=== PATIENT | female | born 1950 | race Caucasian/White ===

== ENCOUNTER 2018-04-28 12:18 | Inpatient (IN) | payer MEDICARE, BC, SELFPAY ==
[2018-04-28] VITALS (60 sets, daily range): BP systolic 64–130; BP diastolic 30–82; PULSE 91–118; RESP 13–36; TEMP 36.9–37.7; O2SAT 92–100
[2018-04-28] MEDS: Normal Saline 1,000 ML 1000 ML IV ×2 (13:23→16:22)
[2018-04-28 13:24] LABS: Abs Immature Grans 0.04 k/cumm (0.0-0.09); Absolute Basophil Count 0.01 k/cumm (0.0-0.2); Absolute Lymphocyte Count 0.55 k/cumm (1.2-3.4); Basophils % 0.1; HGB 13.3 g/dL (12.0-15.5); Immature Grans % 0.3; Lymphocytes % 4.8; Mean Corp. HGB Concentration 34.1 g/dL (32.0-36.0); Mean Corpuscular Hemoglobin 30.4 pg (27.0-33.0); Mean Platelet Volume 10.6 fL (8.0-11.0); Monocytes % 5.6; Neutrophils % 89.2; Platelet Count 167 x1000/uL (130-400); RBC 4.38 m/cumm (4.00-5.20); RBC Distribution Width 12.6 % (11.7-14.6); White Blood Cell Count 11.53 k/cumm (4.4-10.8)
[2018-04-28 13:30] LABS: Absolute Monocyte Count 0.65 k/cumm (0.11-0.7); Absolute Neutrophil Count 10.28 k/cumm (1.2-6.7)
[2018-04-28 13:35] LABS: ALT 16 U/L (12-78); AST 15 U/L (15-37); Albumin 3.2 g/dL (3.4-5.0); Alkaline Phosphatase 74 U/L (46-116); Anion Gap 12.5 mmol/L (3-11); BUN 9 mg/dL (7-18); Bilirubin, Total 0.8 mg/dL (0.2-1.0); CO2 25.5 mmol/L (21.0-32.0); Calcium 8.5 mg/dL (8.5-10.1); Chloride 99 mmol/L (98-107); Glucose 110 mg/dL (70-100); Magnesium 2.1 mg/dL (1.8-2.4); Sodium 137 mmol/L (136-145); Total Protein 7.3 g/dL (6.4-8.2)
[2018-04-28 13:36] LABS: Troponin I < 0.02 ng/mL (0.00-0.06)
--- NOTE | 2018-04-28 15:00 | W.ED.GENAD ---
Discharge Plan Discharge Details Chief Complaint: GenMedical Reason For Visit: CELLULITIS Admit Date/Time: 04/28/18 20:26 Admit Provider: Nato Gudino Attending Provider: Nato Gudino Primary Care Provider: Brandy White ED Provider: Nghia rCenshaw Discharge Data Discharge Date/Time-TO BE ENTERED AT DEPARTURE: 04/28/18 21:21 Medical Decision Making MDM Narrative Medical decision making narrative: Patient presenting to the emergency department for chief complaint of malaise, sore throat, cough, and subjective fever and chills over the past couple days. She states within the past 24 hours she has developed a significant redness to her chest surrounding her open cancerous lesion. Patient does state an episode of syncope after using the restroom. She does state some mild shortness of breath and nausea but denies any diarrhea, or vomiting. Patient does state due to some nausea she has had decreased intake of food or fluids and feels dehydrated. Patient denies any injury or trauma from the syncopal episode. Physical exam is unremarkable for HEENT exam, head trauma, neurological deficits. Patient does have significant lesion to the anterior sternum with some opening of the lesion which patient states is at baseline. Across the anterior wall there is streaking erythema with warmth and patient does state discomfort when palpating this area but at rest denies any pain or discomfort. Patient is hypotensive and tachycardic but afebrile. Concern for possible anterior chest wall cellulitis, viral illness, pneumonia, or PE. Plan to perform lab testing including blood cultures, urinalysis, chest x-ray, and CT scan of chest after evaluation of renal function. Blood cultures were also drawn pending results patient given 1 L IV fluids. Patient was also hypoxic so 2 L nasal cannula was given the patient an option responded appropriate. Review of labs that show a mild leukocytosis and some signs of dehydration on CMP otherwise nondiagnostic reassess. Patient remains tachycardic and hypoxic. Patient has not had chest x-rays her chest x-ray was canceled and CT PE protocol was ordered. A second liter of IV fluids was ordered Speaking with the radiologist chest CT shows no PE, small atelectasis and pleural effusion on the left side, no infiltrate, and some axillary lymphadenopathy. CT does show significant cancerous lesion anterior to the sternum with some sternal involvement Given nonspecific findings on blood work and CT scan showing cancerous findings I did speak with patient's oncologist in regards to care patientspoke with Dr. Vazquez hematology fellow at [facility]. He recommended additional lactic acid and to otherwise treat chest erythema/rash that is surrounding cancerous lesion as cellulitis until proven otherwise. He stated that if patient was stable for discharge she could follow-up with their office and call on Tuesday for any reexamination as needed or that they would be available for consult if patient needed to be admitted. Patient reassessed and shows some improvement in tachycardia and blood pressure but not fully resolved. Given patient's sulfa and penicillin allergy and patient being hypotensive with significant portions of the anterior chest wall involved there is concern for severe cellulitis so patient started on Levaquin IV pending lactic acid result and further evaluation of blood pressure. Lab Data Lab Results 04/28/18 04/28/18 Range/Units 13:00 13:00 WBC 11.53 H (4.4-10.8) k/cumm RBC 4.38 (4.00-5.20) m/cumm Hgb 13.3 (12.0-15.5) g/dL Hct 39.0 (36.0-46.0) % MCV 89.0 (80-95) fL MCH 30.4 (27.0-33.0) pg MCHC 34.1 (32.0-36.0) g/dL RDW 12.6 (11.7-14.6) % Plt Count 167 (130-400) x1000/uL MPV 10.6 (8.0-11.0) fL Immature Gran % 0.3 Neutrophils % 89.2 Lymphocytes % 4.8 Monocytes % 5.6 Eosinophils % 0.0 Basophils % 0.1 Absolute Neutrophils 10.28 H (1.2-6.7) k/cumm Absolute Lymphocytes 0.55 L (1.2-3.4) k/cumm Absolute Monocytes 0.65 (0.11-0.7) k/cumm Absolute Eosinophils 0.00 (0.0-0.7) k/cumm Absolute Basophils 0.01 (0.0-0.2) k/cumm Sodium 137 (136-145) mmol/L Potassium 3.0 L (3.5-5.1) mmol/L Chloride 99 (98-107) mmol/L Carbon Dioxide 25.5 (21.0-32.0) mmol/L Anion Gap 12.5 H (3-11) mmol/L BUN 9 (7-18) mg/dL Creatinine 0.50 L (0.55-1.02) mg/dL Estimated GFR/1.73 m2 >= 60.00 (mL/min/1.73m2) Glucose 110 H (70-100) mg/dL Calcium 8.5 (8.5-10.1) mg/dL Magnesium 2.1 (1.8-2.4) mg/dL Total Bilirubin 0.8 (0.2-1.0) mg/dL AST 15 (15-37) U/L ALT 16 (12-78) U/L Alkaline Phosphatase 74 (46-116) U/L Troponin I < 0.02 (0.00-0.06) ng/mL Total Protein 7.3 (6.4-8.2) g/dL Albumin 3.2 L (3.4-5.0) g/dL HPI - General Adult General Date/Time Provider Initiated Documentation: 04/28/18 12:32. Limitations to Documentation: no limitations. Information obtained by: patient and family. History of Present Illness 67 year old F presents to the emergency department with the chief complaint of Cold like Symptoms, described as moderate, with intensity rated at 6. Quality is described as aching, and is localized to the head. Patient reports no radiation. Patient started experiencing this day(s) (3) and it has been constant. No relieving factors improve symptom(s), No exacerbating factors reported . Patient did receive the following treatments prior to arrival, none Related Data Home Medications Medication Instructions Recorded Confirmed exemestane 25 mg PO DAILY 04/28/18 04/28/18 Allergies Allergy/AdvReac Type Severity Reaction Status Date / Time Penicillins Allergy Severe Unverified 04/28/18 12:44 Sulfa (Sulfonamide Allergy Severe Unverified 04/28/18 12:44 Antibiotics) General Stated Complaint: GenMedical JARED: 3 Review of Systems Constitutional Denies body ache(s), Reports chills, Reports fatigue, Reports fever(s) and Reports malaise ENT Denies nasal congestion, Denies nasal discharge, Denies neck pain and Reports sore throat Cardiovascular Denies chest pain and Denies dyspnea Respiratory Denies dyspnea Gastrointestinal Denies abdominal pain, Denies nausea and Denies vomiting Musculoskeletal Denies neck pain Integumentary/Breasts Denies rash Neurologic Denies confusion and Denies sensory deficit Psychiatric Denies confusion Endocrine Reports fatigue [facility] Medical History 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 (Acute) Recurrent cancer of left breast (Acute) Hx of malignant neoplasm of breast (Chronic) Social History household members: spouse marital status: Smoking/Tobacco Use Status: Never alcohol intake: current alcohol intake frequency: holidays/special occasions only substance use type: does not use Surgical History S/P right breast biopsy (Resolved) Status post left breast lumpectomy (Resolved) Status post lymph node biopsy (Resolved) Exam Const General: cooperative, no acute distress and not ill appearing Orientation: alert, awake and oriented x3 HENMT Mouth: moist mucous membranes Chest Chest: mass Breast inspection: abnormal inspection of the breast (Retracted nipple on the left breast. Breast and chest wall erythema) Breast palpation: axillary lymphadenopathy Resp Effort & Inspection: normal respiratory effort, able to speak in complete sentences and no respiratory distress Cardio Rate: regular rate Rhythm: regular rhythm Heart Sounds: S2 normal, normal S1 and S2, no click, no gallops, no murmurs and no rubs Neuro General: alert, awake, oriented x3, moves all extremities and no focal motor deficits Sensory Exam: no sensory deficits noted Course Vital Signs Temperature 36.9 C 04/28/18 12:30 Pulse 100 H 04/28/18 12:30 Respiratory Rate 24 04/28/18 12:30 Blood Pressure 93/55 L 04/28/18 12:30 Pulse Oximetry 92 L 04/28/18 12:30 Temperature 36.9 C 04/28/18 12:30 Pulse 100 H 04/28/18 12:30 Respiratory Rate 24 04/28/18 12:30 Blood Pressure 93/55 L 04/28/18 12:30 Pulse Oximetry 92 L 04/28/18 12:30 Lab/Test Results Lab/Test Results: Laboratory Tests 04/28/18 04/28/18 13:00 13:00 WBC 11.53 H RBC 4.38 Hgb 13.3 Hct 39.0 MCV 89.0 MCH 30.4 MCHC 34.1 RDW 12.6 Plt Count 167 MPV 10.6 Immature Gran % 0.3 Neutrophils % 89.2 Lymphocytes % 4.8 Monocytes % 5.6 Eosinophils % 0.0 Basophils % 0.1 Absolute Neutrophils 10.28 H Absolute Lymphocytes 0.55 L Absolute Monocytes 0.65 Absolute Eosinophils 0.00 Absolute Basophils 0.01 Sodium 137 Potassium 3.0 L Chloride 99 Carbon Dioxide 25.5 Anion Gap 12.5 H BUN 9 Creatinine 0.50 L Estimated GFR/1.73 m2 >= 60.00 Glucose 110 H Calcium 8.5 Magnesium 2.1 Total Bilirubin 0.8 AST 15 ALT 16 Alkaline Phosphatase 74 Troponin I < 0.02 Total Protein 7.3 Albumin 3.2 L
--- NOTE | 2018-04-28 15:32 | DI.CT_ITS ---
SYMPTOMS/DIAGNOSIS: SYNCOPE, SHORTNESS OF BREATH CHEST CT FOR PULMONARY EMBOLISM: CT angiography was performed with multi slice acquisition and multi planar and 3D reconstruction. There are no prior comparison exams. The patient states previous examinations at [facility]. The pulmonary arteries are well opacified with IV contrast and no pulmonary emboli are identified. There is no evidence of aortic dissection. There is a large soft tissue mass seen anterior to the sternum, which invades the chest wall. There is some adjacent pericardial thickening. The sternum is abnormally sclerotic. There is bilateral axillary adenopathy. There is a small left pleural effusion and adjacent atelectasis. Skin thickening is seen, greater over the right breast. Left axillary clips and left breast scarring are seen. IMPRESSION: No evidence of pulmonary emboli or pneumonia. There is a small left pleural effusion and adjacent atelectasis. A large mass is seen anterior to the sternum with chest wall infiltration. There is scarring in the left breast, which may be secondary to a previous lumpectomy and axillary dissection. Correlation with previous exams is recommended.
[2018-04-28] MEDS: Omnipaque 350 MG/ML 100 ML BTL IJ (15:41)
[2018-04-28 17:13] LABS: Lactate-non-spesis 1.2 mmol/L (0.6-1.4)
[2018-04-28 17:32] LABS: Bilirubin Negative (Negative); Blood Negative (Negative); Clarity Clear; Glucose Negative (Negative); Ketones 40 mg/dL (Negative); Leukocyte Esterase Negative (Negative); Nitrite Negative (Negative); Urobilinogen 0.2 EU/dL (Up TO 0.2)
[2018-04-28] MEDS: LEVOFLOXACIN 750 MG/150 ML BAG 150 MG IVPB (18:00)
--- NOTE | 2018-04-28 20:11 | HPE_ITS ---
Date of service: 04/28/18 Time of Service: 20:08 Assessment and Plan (1) Rash: Current visit: Yes Status: Acute There is clearly an element of infection here, nominally cellulitis. However, the overall appearance of this rash is distinctly atypical and I wonder if there is some additional process at play here. Also, there is an evidently infected presternal mass which to my exam looks like it may need incision and drainage. Due to the location, as well as the atypical features here, I will consult with the surgeon as to the best course here. We will continue antibiotics (Levaquin is a satisfactory choice at this point), IV fluids and monitor clinically. I did review advanced directives with the patient and she wishes to be full code History of Present Illness Chief Complaint: malaise and rash on chest Narrative: Patient is a 65-year-old female with history of recurrent breast cancer, now involving erosion through the chest wall. She comes in with several days of anorexia, malaise, weakness and 1 day of an expanding rash on the chest. Initial evaluation of note for blood pressure approximately 90 systolic with a pulse in the low 100s patient was given IV fluids. CT angiogram of the chest was obtained which was negative for PE but did demonstrate a known mediastinal and mass extending through the chest wall patient was given a dose of Levaquin and admitted for further evaluation and management. Review of Systems Review of Systems All systems reviewed & are unremarkable except as noted in HPI and below PFSH Social History Smoking/Tobacco Use Status: Never Meds Home Medications Medication Instructions Recorded Confirmed Type exemestane 25 mg PO DAILY 04/28/18 04/28/18 History Allergies Allergy/AdvReac Type Severity Reaction Status Date / Time Penicillins Allergy Severe Unverified 04/28/18 12:44 Sulfa (Sulfonamide Allergy Severe Unverified 04/28/18 12:44 Antibiotics) Exam Narrative Exam Narrative: Blood pressure at present 100/70 pulse 100 and regular respirations 22 temp 36.9. HEENT is unremarkable. Neck supple. Lungs are clear with diminished breath sounds at the left base heart is distant but regular rate and rhythm chest exam is noted for a a purplish and fluctuant presternal mass approximately 3 x 5% ureters. At the superior pole there is some crust with a small amount of pus oozing across most of the upper chest there is irregular erythematous rash. Over the left breast this is more or less confluent, warm and fairly typical of the cellulitis. On the right side of the chest and also involving the left flank and axilla is a more irregular area of patchy and somewhat darker erythema with areas of vague early crusting perhaps. The abdomen is soft and nontender. Pelvic and rectal exams are deferred extremities there is trace pedal edema neurological patient is alert and oriented moves all 4 extremities equally Results Labs : 04/28/18 13:00 04/28/18 13:00 Laboratory Results - last 24 hr 04/28/18 04/28/18 04/28/18 13:00 13:00 15:20 WBC 11.53 H RBC 4.38 Hgb 13.3 Hct 39.0 MCV 89.0 MCH 30.4 MCHC 34.1 RDW 12.6 Plt Count 167 MPV 10.6 Immature Gran % 0.3 Neutrophils % 89.2 Lymphocytes % 4.8 Monocytes % 5.6 Eosinophils % 0.0 Basophils % 0.1 Absolute Neutrophils 10.28 H Absolute Lymphocytes 0.55 L Absolute Monocytes 0.65 Absolute Eosinophils 0.00 Absolute Basophils 0.01 Sodium 137 Potassium 3.0 L Chloride 99 Carbon Dioxide 25.5 Anion Gap 12.5 H BUN 9 Creatinine 0.50 L Estimated GFR/1.73 m2 >= 60.00 Glucose 110 H Lactate Calcium 8.5 Magnesium 2.1 Total Bilirubin 0.8 AST 15 ALT 16 Alkaline Phosphatase 74 Troponin I < 0.02 Total Protein 7.3 Albumin 3.2 L Urine Color Yellow Urine Clarity Clear Urine pH 6.0 Ur Specific [place] 1.010 Urine Protein Negative Urine Ketones 40 H Urine Blood Negative Urine Nitrite Negative Urine Bilirubin Negative Urine Urobilinogen 0.2 Ur Leukocyte Esterase Negative Urine Glucose Negative 04/28/18 17:08 WBC RBC Hgb Hct MCV MCH MCHC RDW Plt Count MPV Immature Gran % Neutrophils % Lymphocytes % Monocytes % Eosinophils % Basophils % Absolute Neutrophils Absolute Lymphocytes Absolute Monocytes Absolute Eosinophils Absolute Basophils Sodium Potassium Chloride Carbon Dioxide Anion Gap BUN Creatinine Estimated GFR/1.73 m2 Glucose Lactate 1.2 Calcium Magnesium Total Bilirubin AST ALT Alkaline Phosphatase Troponin I Total Protein Albumin Urine Color Urine Clarity Urine pH Ur Specific [place] Urine Protein Urine Ketones Urine Blood Urine Nitrite Urine Bilirubin Urine Urobilinogen Ur Leukocyte Esterase Urine Glucose
[2018-04-28] MEDS: POTASSIUM CHLORIDE/0.9% NACL 1,000 ML 125 MEQ IV (22:10)
[2018-04-29] VITALS (11 sets, daily range): BP systolic 75–110; BP diastolic 40–72; PULSE 75–105; RESP 16–24; TEMP 36.7–39.1; O2SAT 93–96
[2018-04-29] MEDS: Normal Saline 1,000 ML 1000 ML IV (00:24)
[2018-04-29] MEDS: Acetaminophen 325 MG TAB 650 MG PO ×2 (00:29→20:30)
[2018-04-29] MEDS: guaiFENesin 200 MG/10 ML CUP PO (00:46)
[2018-04-29] MEDS: CLINDAMYCIN 900 MG/50 ML BAG 50 MG IVPB ×3 (02:51→20:17)
[2018-04-29] MEDS: POTASSIUM CHLORIDE/0.9% NACL 1,000 ML 200 MEQ IV ×2 (06:34→12:44)
[2018-04-29 07:31] LABS: Anion Gap 10.5 mmol/L (3-11); CO2 23.5 mmol/L (21.0-32.0); Chloride 108 mmol/L (98-107); Potassium 3.3 mmol/L (3.5-5.1); Sodium 142 mmol/L (136-145)
--- NOTE | 2018-04-29 08:52 | W.PM.HP.N ---
Date of service: 04/29/18 Time of Service: 08:00 Assessment and Plan (1) Abscess or cellulitis of chest wall: Current visit: Yes Status: Acute There is extensive rash/cellulites of the chest wall. This may be due to the infection. Spoke to Dr. Gutierrez from Hematology at [facility]. She agrees with antibiotic therapy at this time and drainage of abscess. Her Exemestane should not affect her ability to fight an infection. If no improvement consider calling Infectious disease at [facility] (2) Abscess of parasternal chest wall: Current visit: Yes Status: Acute Abscess most likely secondary to tumor necrosis. Discussed I&D with patient. Will try to do it at bedside if she tolerates it. If too painful will call in the OR team. Will get cultures as well (3) Bacteremia: Current visit: Yes Status: Acute Anaerobic blood cultures growing Gram positive Diplococci Aerobic cultures growing Gram positive cocci in chains Patient is on Levaquin and Clindamycin History of Present Illness Chief Complaint: Infected chest wall cancer Consults Consult date: 04/29/18 Requesting physician: Nato Gudino Narrative: Mrs. Rivera is a pleasant 67 year old female with a PMHx significant for Breast Cancer diagnosed in 1997. She underwent a left lumpectomy and SLN bx. She did not have to have chemotherapy. 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 She saw her Oncologist Dr. Eckert on April 13 and has another follow up appointment on May 26. At her last appointment her felt that the tumour burden was less. A few days ago she developed a rash on her right shoulder that has since spread to the left Breast. There is a midline mass over the sternum. The rash doesn't itch. It is slightly uncomfortable if she tries to lay down on it. She feels tired and has had some low grade fevers at home. WBC count on admission was just over 14,000. Blood cultures are growing Gram positive diplococci and Gram positive cocci in chains. She was started on Levaquin and Clindamycin because she is allergic to Sulfa and PCN. Review of Systems Constitutional Reports anorexia and Reports malaise Cardiovascular Denies chest pain, Denies chest pain at rest, Denies palpitations, Denies dyspnea and Denies dyspnea on exertion Respiratory Denies cough, Denies pain with cough, Denies dyspnea and Denies dyspnea on exertion Gastrointestinal Denies abdominal pain, Denies bloating and Denies change in bowel habits Musculoskeletal Denies back pain, Denies joint swelling and Denies muscle weakness Integumentary/Breasts Reports as per [facility] Endocrine Reports system reviewed and no additional complaints, except as docu and Denies palpitations Hematologic/Lymphatic Denies easy bleeding and Denies easy bruising PFSH Social History Smoking/Tobacco Use Status: Never Meds Home Medications Medication Instructions Recorded Confirmed Type exemestane 25 mg PO DAILY 04/28/18 04/28/18 History Allergies Allergy/AdvReac Type Severity Reaction Status Date / Time Penicillins Allergy Severe Unverified 04/28/18 12:44 Sulfa (Sulfonamide Allergy Severe Unverified 04/28/18 12:44 Antibiotics) Exam Const General: cooperative and no acute distress Eyes Pupils: PERRL Chest Chest: tenderness sternum Breast inspection: abnormal inspection of the breast (There is a rash extending from her right shoulder to the left chest wall. The entire left breast is red. There is a fluctuant mass measuring 3.4 cm over the sternum that is purple. There is a small open area without drainage at this time) Breast palpation: other (Palpable right breast mass, nipple inversion of the left breast) Chest/axillae images: 1. Fluctuante mass with a 1 x 1 cm open area 2. patchy rash/cellulitis 3. cellulitis/rash Resp Effort & Inspection: normal respiratory effort Auscultation: clear to auscultation bilaterally Cardio Rate: regular rate Rhythm: regular rhythm Heart Sounds: no click, no gallops, no murmurs and no rubs GI Palpation: soft and nontender Auscultation: normal bowel sounds Results Labs : 04/28/18 13:00 04/29/18 06:10 Laboratory Results - last 24 hr 04/28/18 04/28/18 04/28/18 13:00 13:00 15:20 WBC 11.53 H RBC 4.38 Hgb 13.3 Hct 39.0 MCV 89.0 MCH 30.4 MCHC 34.1 RDW 12.6 Plt Count 167 MPV 10.6 Immature Gran % 0.3 Neutrophils % 89.2 Lymphocytes % 4.8 Monocytes % 5.6 Eosinophils % 0.0 Basophils % 0.1 Absolute Neutrophils 10.28 H Absolute Lymphocytes 0.55 L Absolute Monocytes 0.65 Absolute Eosinophils 0.00 Absolute Basophils 0.01 Sodium 137 Potassium 3.0 L Chloride 99 Carbon Dioxide 25.5 Anion Gap 12.5 H BUN 9 Creatinine 0.50 L Estimated GFR/1.73 m2 >= 60.00 Glucose 110 H Lactate Calcium 8.5 Magnesium 2.1 Total Bilirubin 0.8 AST 15 ALT 16 Alkaline Phosphatase 74 Troponin I < 0.02 Total Protein 7.3 Albumin 3.2 L Urine Color Yellow Urine Clarity Clear Urine pH 6.0 Ur Specific [place] 1.010 Urine Protein Negative Urine Ketones 40 H Urine Blood Negative Urine Nitrite Negative Urine Bilirubin Negative Urine Urobilinogen 0.2 Ur Leukocyte Esterase Negative Urine Glucose Negative 04/28/18 04/29/18 17:08 06:10 WBC RBC Hgb Hct MCV MCH MCHC RDW Plt Count MPV Immature Gran % Neutrophils % Lymphocytes % Monocytes % Eosinophils % Basophils % Absolute Neutrophils Absolute Lymphocytes Absolute Monocytes Absolute Eosinophils Absolute Basophils Sodium 142 Potassium 3.3 L Chloride 108 H Carbon Dioxide 23.5 Anion Gap 10.5 BUN Creatinine Estimated GFR/1.73 m2 Glucose Lactate 1.2 Calcium Magnesium Total Bilirubin AST ALT Alkaline Phosphatase Troponin I Total Protein Albumin Urine Color Urine Clarity Urine pH Ur Specific [place] Urine Protein Urine Ketones Urine Blood Urine Nitrite Urine Bilirubin Urine Urobilinogen Ur Leukocyte Esterase Urine Glucose
--- NOTE | 2018-04-29 08:55 | HPE_ITS ---
Date of service: 04/29/18 Time of Service: 08:00 Assessment and Plan (1) Abscess or cellulitis of chest wall: Current visit: Yes Status: Acute There is extensive rash/cellulites of the chest wall. This may be due to the infection. Spoke to Dr. Gutierrez from Hematology at [facility]. She agrees with antibiotic therapy at this time and drainage of abscess. Her Exemestane should not affect her ability to fight an infection. If no improvement consider calling Infectious disease at [facility] (2) Abscess of parasternal chest wall: Current visit: Yes Status: Acute Abscess most likely secondary to tumor necrosis. Discussed I&D with patient. Will try to do it at bedside if she tolerates it. If too painful will call in the OR team. Will get cultures as well (3) Bacteremia: Current visit: Yes Status: Acute Anaerobic blood cultures growing Gram positive Diplococci Aerobic cultures growing Gram positive cocci in chains Patient is on Levaquin and Clindamycin History of Present Illness Chief Complaint: Infected chest wall cancer Consults Consult date: 04/29/18 Requesting physician: Nato Gudino Narrative: Mrs. Rivera is a pleasant 67 year old female with a PMHx significant for Breast Cancer diagnosed in 1997. She underwent a left lumpectomy and SLN bx. She did not have to have chemotherapy. 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 She saw her Oncologist Dr. Eckert on April 13 and has another follow up appointment on May 26. At her last appointment her felt that the tumour burden was less. A few days ago she developed a rash on her right shoulder that has since spread to the left Breast. There is a midline mass over the sternum. The rash doesn't itch. It is slightly uncomfortable if she tries to lay down on it. She feels tired and has had some low grade fevers at home. WBC count on admission was just over 14,000. Blood cultures are growing Gram positive diplococci and Gram positive cocci in chains. She was started on Levaquin and Clindamycin because she is allergic to Sulfa and PCN. Review of Systems Constitutional Reports anorexia and Reports malaise Cardiovascular Denies chest pain, Denies chest pain at rest, Denies palpitations, Denies dyspnea and Denies dyspnea on exertion Respiratory Denies cough, Denies pain with cough, Denies dyspnea and Denies dyspnea on exertion Gastrointestinal Denies abdominal pain, Denies bloating and Denies change in bowel habits Musculoskeletal Denies back pain, Denies joint swelling and Denies muscle weakness Integumentary/Breasts Reports as per [facility] Endocrine Reports system reviewed and no additional complaints, except as docu and Denies palpitations Hematologic/Lymphatic Denies easy bleeding and Denies easy bruising PFSH Social History Smoking/Tobacco Use Status: Never Meds Home Medications Medication Instructions Recorded Confirmed Type exemestane 25 mg PO DAILY 04/28/18 04/28/18 History Allergies Allergy/AdvReac Type Severity Reaction Status Date / Time Penicillins Allergy Severe Unverified 04/28/18 12:44 Sulfa (Sulfonamide Allergy Severe Unverified 04/28/18 12:44 Antibiotics) Exam Const General: cooperative and no acute distress Eyes Pupils: PERRL Chest Chest: tenderness sternum Breast inspection: abnormal inspection of the breast (There is a rash extending from her right shoulder to the left chest wall. The entire left breast is red. There is a fluctuant mass measuring 3.4 cm over the sternum that is purple. There is a small open area without drainage at this time) Breast palpation: other (Palpable right breast mass, nipple inversion of the left breast) Chest/axillae images: 2 1. Fluctuante mass with a 1 x 1 cm open area 2. patchy rash/cellulitis 3. cellulitis/rash Resp Effort & Inspection: normal respiratory effort Auscultation: clear to auscultation bilaterally Cardio Rate: regular rate Rhythm: regular rhythm Heart Sounds: no click, no gallops, no murmurs and no rubs GI Palpation: soft and nontender Auscultation: normal bowel sounds Results Labs : 04/28/18 13:00 04/29/18 06:10 Laboratory Results - last 24 hr 04/28/18 04/28/18 04/28/18 13:00 13:00 15:20 WBC 11.53 H RBC 4.38 Hgb 13.3 Hct 39.0 MCV 89.0 MCH 30.4 MCHC 34.1 RDW 12.6 Plt Count 167 MPV 10.6 Immature Gran % 0.3 Neutrophils % 89.2 Lymphocytes % 4.8 Monocytes % 5.6 Eosinophils % 0.0 Basophils % 0.1 Absolute Neutrophils 10.28 H Absolute Lymphocytes 0.55 L Absolute Monocytes 0.65 Absolute Eosinophils 0.00 Absolute Basophils 0.01 Sodium 137 Potassium 3.0 L Chloride 99 Carbon Dioxide 25.5 Anion Gap 12.5 H BUN 9 Creatinine 0.50 L Estimated GFR/1.73 m2 >= 60.00 Glucose 110 H Lactate Calcium 8.5 Magnesium 2.1 Total Bilirubin 0.8 AST 15 ALT 16 Alkaline Phosphatase 74 Troponin I < 0.02 Total Protein 7.3 Albumin 3.2 L Urine Color Yellow Urine Clarity Clear Urine pH 6.0 Ur Specific Speculator 1.010 Urine Protein Negative Urine Ketones 40 H Urine Blood Negative Urine Nitrite Negative Urine Bilirubin Negative Urine Urobilinogen 0.2 Ur Leukocyte Esterase Negative Urine Glucose Negative 04/28/18 04/29/18 17:08 06:10 WBC RBC Hgb Hct MCV MCH MCHC RDW Plt Count MPV Immature Gran % Neutrophils % Lymphocytes % Monocytes % Eosinophils % Basophils % Absolute Neutrophils Absolute Lymphocytes Absolute Monocytes Absolute Eosinophils Absolute Basophils Sodium 142 Potassium 3.3 L Chloride 108 H Carbon Dioxide 23.5 Anion Gap 10.5 BUN Creatinine Estimated GFR/1.73 m2 Glucose Lactate 1.2 Calcium Magnesium Total Bilirubin AST ALT Alkaline Phosphatase Troponin I Total Protein Albumin Urine Color Urine Clarity Urine pH Ur Specific Speculator Urine Protein Urine Ketones Urine Blood Urine Nitrite Urine Bilirubin Urine Urobilinogen Ur Leukocyte Esterase Urine Glucose
--- NOTE | 2018-04-29 09:10 | PHARADMIT ---
Addendum entered by Vaishali Sanchez 05/02/18 16:12: Pharmacy Note Subjective Objective VS-okay labs pending Assessment blood cultures no growth at 24 hours ceftriaxone discontinued, clindamycin changed to PO probiotic ordered Plan possible discharge tomorrow if no fevers overnight Original Note: Admission Pharmacy Clinical Review cellulitis Code Status Full Code Current Weight 64.3 kg Renally Cleared and Narrow Therapeutic Index Meds Crcl ~54.70 mL/min current meds okay QTc Value / Action Taken BP Control, Fever BP 99/67 Tmax 39.1 Electrolytes reviewed K+3.3 Cl 108 DVT Prophylaxis none Opiate Usage / Scheduled Bowel Regimen Ordered no/no Plt/SCr for Heparin / Enoxaparin plt 167 Scr 0.50 INR for Warfarin n/a H/H stable, WBC/Bands h/h 13.3/39.0 wbc 11.53 Antibiotic appropriateness clindamycin Cultures and Sensitivities blood cultures: 1 pending, other grew gram+ diplococci Surgical ABX d/c within 24 hr n/a DM control / Insulin Dosing BG 110 n/a Heart Failure (Check EF%) (CALLY's, B-Block, Diuretics) none IV to PO Switch n/a Home Meds Reviewed yes Home Meds Not Ordered exemestane Comments
[2018-04-29] MEDS: Lidocaine 2% Pres-Free 5 ML VIAL IJ (10:10)
--- NOTE | 2018-04-29 10:18 | W.PM.OP ---
Date of service: 04/29/18 Time of Service: 10:00 Operative Note Date of procedure: 04/29/18 Pre-op diagnosis: Chest wall abscess Post-op diagnosis: other (Infected hematoma) Procedure: Incision and drainage of chest wall hematoma Surgeon: Taylor Goodman Anesthesia: local (2% Lidocaine) Estimated blood loss (mL): 10 Pathology: other (anaerobic and aerobic cultures) Complications: None Patient was transported to: no change Patient's condition: stable Indications: Mrs. Rivera is a pleasant 67 year old with recurrent breast cancer of the left breast now involving her sternum who was admitted last night with bacteremia and question of abscess around the chest tumor. Incision and drainage was recomended with cultures. Risks, benefits and complications have been reviewed and the patient wishes to proceed. No guarantees were given or implied. Findings: Hematoma next to the palpable tumor. No fay purulent discharge Procedure Description: After informed consent was obtained the skin was prepped with iodine. The skin was infiltrated with 2% Lidocaine. A small 1.5 cm incision was made with an 11 blade over the fluctuant area. Old blood was extracted. Anaerobic and aerobic cultures were done. Once the old blood was removed the cavity was irrigated with Sterile saline. Mepilex dressing was applied. The patient tolerated the procedure well and there were no immediate complications.
--- NOTE | 2018-04-29 10:30 | PGE_ITS ---
Date of service: 04/29/18 Time of Service: 10:29 Assessment and Plan (1) Bacteremia: Current visit: Yes Status: Acute continue Clindamycin 900 mg iv Q8hr and add Ceftriaxone 2 gm iv daily ( per Champion guidelines for treatment of cellulitis w/ sepsis); will repeat blood cultures after 3 days of iv antibiotics and if bacteremia has cleared then consider switch to oral antiobiotics (2) Abscess of parasternal chest wall: Current visit: Yes Status: Acute s/p incision and drainage of fluctuant area over sternum that apparently was hematoma and not abscess but cultures were sent off. cont. antibiotics as listed above (3) Abscess or cellulitis of chest wall: Current visit: Yes Status: Acute antibiotics as listed above, await blood cultures identification and sensitivity results (4) Rash: Current visit: No Status: Acute unclear as to what the rash is due to but presuming that this is cellulitis however have to consider dermatologic neoplastic spread of her cancer. doubt this is due to her exemastane as she has been on this for two years. I will have to review its side effect profile, however, the [facility] [place] oncology fellow that Dr. Goodman did not think that the rash was due to the exemastane Subjective Interval history since last seen: Patient is a 67-year-old female with a history of breast cancer diagnosed in 1998 treated with a lumpectomy and lymph node dissection had been on tamoxifen but was found to have recurrence and has been on exemastane for couple of years now. She has been found to have metastatic disease to her sternum and has followed up with her oncologist Dr. Eckert at [facility] [place]. She presented to the E.D. yesterday w/ 3 days of generalized fatgue, chills, weakness and developed an erythematous, serpiginous rash over her chest wall that began initially over her right shoulder but has spread to her anterior chest wall, over both breasts and her sternum and her left chest wall. Workup in the ER revealed she had fever of 39.1 and leukocytosis of 11,000. Her sternum has a fluctuant mass over her sternum w/ a small open area that is not draining. Yesterday when she first presented she appeared to be septic w/ low blood pressure and tachycardic however she has responded to iv fluids. Treatment in the ER included blood cultures (now positive for GPC in chains and diplococci) and initiation of iv Levquin and iv fluids. Dr. Gudino, night hospitalist, switched her to Clindamycin 900 mg IVPB Q8hr and I have added Rocephin [address] Goodman, general surgeon, saw the patient this morning and has drained the fluctuant area over her sternum and sent the fluid out for cultures. She indicated that the fluid was a hematoma and no fay pus was obtained. See her procedure note for details. Exam Const General: cooperative, no acute distress and well developed Nutritional Appearance: average body habitus Orientation: alert, awake and oriented x3 Chest Chest/axillae images: 2 1. diffuse erthemytaous rash w/ tentacle lesions extending beyond the borders in serpiginous shape 2. diffuse red rash over entire left breast and upper chest wall in serpiginous shape; I did not see the central lesion over the sternum as Dr. Goodman had just drained this and applied a sternal wound dressing Resp Effort & Inspection: normal respiratory effort and able to speak in complete sentences Auscultation: clear to auscultation bilaterally Cardio Jugular venous pressure: no JVD Palpation: normal PMI Rate: regular rate Rhythm: regular rhythm Heart Sounds: S1 normal, S2 normal and normal, physiologic split S2 GI Inspection: normal to inspection, no edema and non-distended Palpation: soft Auscultation: normal bowel sounds Skin General skin exam: ecchymosis (bruising over left tibia) and erythema (diffuse serpiginous rash over chest wall both breasts and upper arms at medial proximal humeri and shoulders) Neuro General: alert, awake and oriented x3 Cognition: normal cognition Speech: speech normal Motor: muscle tone normal throughout and strength 5/5 throughout Sensory Exam: no sensory deficits noted Extrem General: full ROM, normal capillary refill, no calf tenderness bilaterally and no edema Psych Appearance: grossly normal and well kempt Mental Status: mental status grossly normal Mood: congruent mood Affect: normal affect Attitude: cooperative Thought Process: normal Thought Content: normal Insight: insight good Judgment: judgment good Objective Objective Clinical Data: Abnormal lab results 04/28/18 04/28/18 04/28/18 Range/Units 13:00 13:00 15:20 WBC 11.53 H (4.4-10.8) k/cumm Absolute Neutrophils 10.28 H (1.2-6.7) k/cumm Absolute Lymphocytes 0.55 L (1.2-3.4) k/cumm Potassium 3.0 L (3.5-5.1) mmol/L Chloride (98-107) mmol/L Anion Gap 12.5 H (3-11) mmol/L Creatinine 0.50 L (0.55-1.02) mg/dL Glucose 110 H (70-100) mg/dL Albumin 3.2 L (3.4-5.0) g/dL Urine Ketones 40 H (Negative) mg/dL 04/29/18 Range/Units 06:10 WBC (4.4-10.8) k/cumm Absolute Neutrophils (1.2-6.7) k/cumm Absolute Lymphocytes (1.2-3.4) k/cumm Potassium 3.3 L (3.5-5.1) mmol/L Chloride 108 H (98-107) mmol/L Anion Gap (3-11) mmol/L Creatinine (0.55-1.02) mg/dL Glucose (70-100) mg/dL Albumin (3.4-5.0) g/dL Urine Ketones (Negative) mg/dL Vital Signs Temp 37.4 C 04/29/18 07:35 Pulse 86 04/29/18 07:35 Resp 18 04/29/18 07:35 BP 94/62 L 04/29/18 07:35 Pulse Ox 95 04/29/18 07:35 Intake & Output 04/28/18 04/28/18 04/29/18 11:59 23:59 11:59 Intake Total 1999 2200.000 / 2200.000 Output Total 650 / 650 Balance 1999 1550.000 / 1550.000 Weight 64.3 kg Intake: IV 1999 2200.000 / 2200.000 Output: Urine 650 / 650 Other: Urine Color Dark Mary Urine Appearance Clear Clear Voiding Methods Toilet Laboratory Results WBC 11.53 k/cumm (4.4-10.8) H 04/28/18 13:00 RBC 4.38 m/cumm (4.00-5.20) 04/28/18 13:00 Hgb 13.3 g/dL (12.0-15.5) 04/28/18 13:00 Hct 39.0 % (36.0-46.0) 04/28/18 13:00 MCV 89.0 fL (80-95) 04/28/18 13:00 MCH 30.4 pg (27.0-33.0) 04/28/18 13:00 MCHC 34.1 g/dL (32.0-36.0) 04/28/18 13:00 RDW 12.6 % (11.7-14.6) 04/28/18 13:00 Plt Count 167 x1000/uL (130-400) 04/28/18 13:00 MPV 10.6 fL (8.0-11.0) 04/28/18 13:00 Immature Gran % 0.3 04/28/18 13:00 Neutrophils % 89.2 04/28/18 13:00 Lymphocytes % 4.8 04/28/18 13:00 Monocytes % 5.6 04/28/18 13:00 Eosinophils % 0.0 04/28/18 13:00 Basophils % 0.1 04/28/18 13:00 Absolute Neutrophils 10.28 k/cumm (1.2-6.7) H 04/28/18 13:00 Absolute Lymphocytes 0.55 k/cumm (1.2-3.4) L 04/28/18 13:00 Absolute Monocytes 0.65 k/cumm (0.11-0.7) 04/28/18 13:00 Absolute Eosinophils 0.00 k/cumm (0.0-0.7) 04/28/18 13:00 Absolute Basophils 0.01 k/cumm (0.0-0.2) 04/28/18 13:00 Sodium 142 mmol/L (136-145) 04/29/18 06:10 Potassium 3.3 mmol/L (3.5-5.1) L 04/29/18 06:10 Chloride 108 mmol/L (98-107) H 04/29/18 06:10 Carbon Dioxide 23.5 mmol/L (21.0-32.0) 04/29/18 06:10 Anion Gap 10.5 mmol/L (3-11) 04/29/18 06:10 BUN 9 mg/dL (7-18) 04/28/18 13:00 Creatinine 0.50 mg/dL (0.55-1.02) L 04/28/18 13:00 Estimated GFR/1.73 m2 >= 60.00 (mL/min/1.73m2) 04/28/18 13:00 Glucose 110 mg/dL (70-100) H 04/28/18 13:00 Lactate 1.2 mmol/L (0.6-1.4) 04/28/18 17:08 Calcium 8.5 mg/dL (8.5-10.1) 04/28/18 13:00 Magnesium 2.1 mg/dL (1.8-2.4) 04/28/18 13:00 Total Bilirubin 0.8 mg/dL (0.2-1.0) 04/28/18 13:00 AST 15 U/L (15-37) 04/28/18 13:00 ALT 16 U/L (12-78) 04/28/18 13:00 Alkaline Phosphatase 74 U/L (46-116) 04/28/18 13:00 Troponin I < 0.02 ng/mL (0.00-0.06) 04/28/18 13:00 Total Protein 7.3 g/dL (6.4-8.2) 04/28/18 13:00 Albumin 3.2 g/dL (3.4-5.0) L 04/28/18 13:00 Urine Color Yellow (Yellow) 04/28/18 15:20 Urine Clarity Clear 04/28/18 15:20 Urine pH 6.0 (5-8) 04/28/18 15:20 Ur Specific [place] 1.010 (1.005-1.025) 04/28/18 15:20 Urine Protein Negative mg/dL (Negative) 04/28/18 15:20 Urine Ketones 40 mg/dL (Negative) H 04/28/18 15:20 Urine Blood Negative (Negative) 04/28/18 15:20 Urine Nitrite Negative (Negative) 04/28/18 15:20 Urine Bilirubin Negative (Negative) 04/28/18 15:20 Urine Urobilinogen 0.2 EU/dL (Up TO 0.2) 04/28/18 15:20 Ur Leukocyte Esterase Negative (Negative) 04/28/18 15:20 Urine Glucose Negative mg/dL (Negative) 04/28/18 15:20
[2018-04-29] MEDS: Benzonatate 100 MG CAP PO (13:56)
--- NOTE | 2018-04-29 16:11 | PDOC.CMIN ---
Care Management Initial Assess REASON FOR HOSPITALIZATION:: Cellulitis with Sepsis PAST MEDICAL HISTORY/PAST SURGICAL HISTORY:: 67-year-old female with a history of breast cancer diagnosed in 1998 treated with a lumpectomy and lymph node dissection had been on tamoxifen but was found to have recurrence and has been on exemastane for couple of years now. She has been found to have metastatic disease to her sternum and has followed up with her oncologist Dr. Eckert at [facility]. PREVIOUS FUNCTIONAL STATUS/SOCIAL/FAMILY SUPPORTS:: Carla resides with her , Andi in [place], [place]. She is employed by the [employer]. CURRENT FUNCTIONAL STATUS:: CM was unable to connect with Carla today and will follow up with her tomorrow. Has patient been provided with information about the portal?: Yes Did the patient sign up for the portal?: No CODE STATUS:: Full Code INSURANCE COVERAGE / FINANCIAL ISSUES:: [employer]. Medicare CURRENT HOME/COMMUNITY SERVICES/EQUIPMENT:: No current services or equipment. PRIMARY CARE PHYSICIAN:: Brandy White POTENTIAL DISCHARGE NEEDS:: Follow up appointments with oncology, PCP and possibly Palliative Care. PATIENT/FAMILY EDUCATION NEEDS:: Review of discharge instructions, infection process, discharge instructions, discuss Ask Me Three, review community based supports. ANTICIPATED BARRIERS TO DISCHARGE:: None identified. TRANSPORTATION:: Via private vehicle with her family. PLAN:: Carla will continue to be closely monitored and treated with IV ABX for cellulitis with sepsis. reports Carla will have a work up for diagnositics and to identify best course of treatment moving forward. CM will continue to follow.
--- NOTE | 2018-04-29 16:50 | INITIAL_ITS ---
Care Management Initial Assess REASON FOR HOSPITALIZATION:: Cellulitis with Sepsis PAST MEDICAL HISTORY/PAST SURGICAL HISTORY:: 67-year-old female with a history of breast cancer diagnosed in 1998 treated with a lumpectomy and lymph node dissection had been on tamoxifen but was found to have recurrence and has been on exemastane for couple of years now. She has been found to have metastatic disease to her sternum and has followed up with her oncologist Dr. Eckert at [facility]. PREVIOUS FUNCTIONAL STATUS/SOCIAL/FAMILY SUPPORTS:: Carla resides with her , Andi in [place], [place]. She is employed by the [employer]. CURRENT FUNCTIONAL STATUS:: CM was unable to connect with Carla today and will follow up with her tomorrow. Has patient been provided with information about the portal?: Yes Did the patient sign up for the portal?: No CODE STATUS:: Full Code INSURANCE COVERAGE / FINANCIAL ISSUES:: [employer]. Medicare CURRENT HOME/COMMUNITY SERVICES/EQUIPMENT:: No current services or equipment. PRIMARY CARE PHYSICIAN:: Brandy White POTENTIAL DISCHARGE NEEDS:: Follow up appointments with oncology, PCP and possibly Palliative Care. PATIENT/FAMILY EDUCATION NEEDS:: Review of discharge instructions, infection process, discharge instructions, discuss Ask Me Three, review community based supports. ANTICIPATED BARRIERS TO DISCHARGE:: None identified. TRANSPORTATION:: Via private vehicle with her family. PLAN:: Carla will continue to be closely monitored and treated with IV ABX for cellulitis with sepsis. reports Carla will have a work up for diagnositics and to identify best course of treatment moving forward. CM will continue to follow.
[2018-04-29] MEDS: POTASSIUM CHLORIDE/0.9% NACL 1,000 ML 100 MEQ IV (17:56)
[2018-04-30] MEDS: CLINDAMYCIN 900 MG/50 ML BAG 50 MG IVPB ×3 (02:50→17:59)
[2018-04-30] MEDS: POTASSIUM CHLORIDE/0.9% NACL 1,000 ML 100 MEQ IV ×2 (05:46→20:52)
[2018-04-30 05:52] VITALS: BP 106/67; PULSE 91; RESP 16; TEMP 36.7; O2SAT 93
[2018-04-30 07:47] VITALS: BP 117/74; PULSE 76; RESP 18; TEMP 37.3; O2SAT 94
--- NOTE | 2018-04-30 08:54 | W.PM.PROGNOT ---
Date of service: 04/30/18 Time of Service: 08:36 Assessment and Plan (1) Abscess or cellulitis of chest wall: Current visit: Yes Status: Acute Rash seems more pronounced today. There is less cellulitis. 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 Gram stain with some WBC but n bacteria. Culture pending Subjective Interval history since last seen: Mrs. Rivera is feeling a little groggy today. No fevers or chills. No increased pain Exam Const General: comfortable and no acute distress Neck Neck: other (New area of redness and edema on right upper neck. Firm to touch) Neck images: 1. rash with edema. Non-tender Resp Auscultation: clear to auscultation bilaterally Cardio Rate: regular rate Rhythm: regular rhythm Skin General skin exam: other (Patchy rash over right shoulder, right chest, left chest and left uper quadrant of adomen. Concomitant cellulitis seems better. Incision and drainage area is c/i. There is a little bleeding noted. ) Wounds: no wounds (tumor growing through skin over her mediastinum) Full body images: 1. Rash with edema. More pronounced today 2. Chest rash. More patchy today 3. LUQ rash 4. Tumor growing through the skin Objective Objective Clinical Data: Vital Signs Temp 99.1 F 04/30/18 07:47 Pulse 76 04/30/18 07:47 Resp 18 04/30/18 07:47 BP 117/74 04/30/18 07:47 Pulse Ox 94 L 04/30/18 07:47 Intake & Output 04/29/18 04/29/18 04/30/18 11:59 23:59 11:59 Intake Total 3200.000 / 3200.000 1571.667 / 3326.476 8853 / 1400 Output Total 950 / 950 1050 / 1050 900 / 900 Balance 2250.000 / 2250.000 521.667 / 521.667 500 / 500 Intake: IV 3200.000 / 3200.000 1091.667 / 6112.973 2818 / 1050 Oral 480 / 480 350 / 350 Output: Urine 950 / 950 1050 / 1050 900 / 900 Other: Urine Color Yellow Yellow Yellow Urine Appearance Clear Clear Clear Urine Odor Normal Voiding Methods Toilet Toilet Laboratory Results WBC 11.53 k/cumm (4.4-10.8) H 04/28/18 13:00 RBC 4.38 m/cumm (4.00-5.20) 04/28/18 13:00 Hgb 13.3 g/dL (12.0-15.5) 04/28/18 13:00 Hct 39.0 % (36.0-46.0) 04/28/18 13:00 MCV 89.0 fL (80-95) 04/28/18 13:00 MCH 30.4 pg (27.0-33.0) 04/28/18 13:00 MCHC 34.1 g/dL (32.0-36.0) 04/28/18 13:00 RDW 12.6 % (11.7-14.6) 04/28/18 13:00 Plt Count 167 x1000/uL (130-400) 04/28/18 13:00 MPV 10.6 fL (8.0-11.0) 04/28/18 13:00 Immature Gran % 0.3 04/28/18 13:00 Neutrophils % 89.2 04/28/18 13:00 Lymphocytes % 4.8 04/28/18 13:00 Monocytes % 5.6 04/28/18 13:00 Eosinophils % 0.0 04/28/18 13:00 Basophils % 0.1 04/28/18 13:00 Absolute Neutrophils 10.28 k/cumm (1.2-6.7) H 04/28/18 13:00 Absolute Lymphocytes 0.55 k/cumm (1.2-3.4) L 04/28/18 13:00 Absolute Monocytes 0.65 k/cumm (0.11-0.7) 04/28/18 13:00 Absolute Eosinophils 0.00 k/cumm (0.0-0.7) 04/28/18 13:00 Absolute Basophils 0.01 k/cumm (0.0-0.2) 04/28/18 13:00 Sodium 142 mmol/L (136-145) 04/29/18 06:10 Potassium 3.3 mmol/L (3.5-5.1) L 04/29/18 06:10 Chloride 108 mmol/L (98-107) H 04/29/18 06:10 Carbon Dioxide 23.5 mmol/L (21.0-32.0) 04/29/18 06:10 Anion Gap 10.5 mmol/L (3-11) 04/29/18 06:10 BUN 9 mg/dL (7-18) 04/28/18 13:00 Creatinine 0.50 mg/dL (0.55-1.02) L 04/28/18 13:00 Estimated GFR/1.73 m2 >= 60.00 (mL/min/1.73m2) 04/28/18 13:00 Glucose 110 mg/dL (70-100) H 04/28/18 13:00 Lactate 1.2 mmol/L (0.6-1.4) 04/28/18 17:08 Calcium 8.5 mg/dL (8.5-10.1) 04/28/18 13:00 Magnesium 2.1 mg/dL (1.8-2.4) 04/28/18 13:00 Total Bilirubin 0.8 mg/dL (0.2-1.0) 04/28/18 13:00 AST 15 U/L (15-37) 04/28/18 13:00 ALT 16 U/L (12-78) 04/28/18 13:00 Alkaline Phosphatase 74 U/L (46-116) 04/28/18 13:00 Troponin I < 0.02 ng/mL (0.00-0.06) 04/28/18 13:00 Total Protein 7.3 g/dL (6.4-8.2) 04/28/18 13:00 Albumin 3.2 g/dL (3.4-5.0) L 04/28/18 13:00 Urine Color Yellow (Yellow) 04/28/18 15:20 Urine Clarity Clear 04/28/18 15:20 Urine pH 6.0 (5-8) 04/28/18 15:20 Ur Specific [place] 1.010 (1.005-1.025) 04/28/18 15:20 Urine Protein Negative mg/dL (Negative) 04/28/18 15:20 Urine Ketones 40 mg/dL (Negative) H 04/28/18 15:20 Urine Blood Negative (Negative) 04/28/18 15:20 Urine Nitrite Negative (Negative) 04/28/18 15:20 Urine Bilirubin Negative (Negative) 04/28/18 15:20 Urine Urobilinogen 0.2 EU/dL (Up TO 0.2) 04/28/18 15:20 Ur Leukocyte Esterase Negative (Negative) 04/28/18 15:20 Urine Glucose Negative mg/dL (Negative) 04/28/18 15:20
--- NOTE | 2018-04-30 08:57 | PGE_ITS ---
Date of service: 04/30/18 Time of Service: 08:36 Assessment and Plan (1) Abscess or cellulitis of chest wall: Current visit: Yes Status: Acute Rash seems more pronounced today. There is less cellulitis. 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 Gram stain with some WBC but n bacteria. Culture pending Subjective Interval history since last seen: Mrs. Rivera is feeling a little groggy today. No fevers or chills. No increased pain Exam Const General: comfortable and no acute distress Neck Neck: other (New area of redness and edema on right upper neck. Firm to touch) Neck images: 2 1. rash with edema. Non-tender Resp Auscultation: clear to auscultation bilaterally Cardio Rate: regular rate Rhythm: regular rhythm Skin General skin exam: other (Patchy rash over right shoulder, right chest, left chest and left uper quadrant of adomen. Concomitant cellulitis seems better. Incision and drainage area is c/i. There is a little bleeding noted. ) Wounds: no wounds (tumor growing through skin over her mediastinum) Full body images: 2 1. Rash with edema. More pronounced today 2. Chest rash. More patchy today 3. LUQ rash 4. Tumor growing through the skin Objective Objective Clinical Data: Vital Signs Temp 99.1 F 04/30/18 07:47 Pulse 76 04/30/18 07:47 Resp 18 04/30/18 07:47 BP 117/74 04/30/18 07:47 Pulse Ox 94 L 04/30/18 07:47 Intake & Output 04/29/18 04/29/18 04/30/18 11:59 23:59 11:59 Intake Total 3200.000 / 3200.000 1571.667 / 3970.087 4231 / 1400 Output Total 950 / 950 1050 / 1050 900 / 900 Balance 2250.000 / 2250.000 521.667 / 521.667 500 / 500 Intake: IV 3200.000 / 3200.000 1091.667 / 9340.719 8579 / 1050 Oral 480 / 480 350 / 350 Output: Urine 950 / 950 1050 / 1050 900 / 900 Other: Urine Color Yellow Yellow Yellow Urine Appearance Clear Clear Clear Urine Odor Normal Voiding Methods Toilet Toilet Laboratory Results WBC 11.53 k/cumm (4.4-10.8) H 04/28/18 13:00 RBC 4.38 m/cumm (4.00-5.20) 04/28/18 13:00 Hgb 13.3 g/dL (12.0-15.5) 04/28/18 13:00 Hct 39.0 % (36.0-46.0) 04/28/18 13:00 MCV 89.0 fL (80-95) 04/28/18 13:00 MCH 30.4 pg (27.0-33.0) 04/28/18 13:00 MCHC 34.1 g/dL (32.0-36.0) 04/28/18 13:00 RDW 12.6 % (11.7-14.6) 04/28/18 13:00 Plt Count 167 x1000/uL (130-400) 04/28/18 13:00 MPV 10.6 fL (8.0-11.0) 04/28/18 13:00 Immature Gran % 0.3 04/28/18 13:00 Neutrophils % 89.2 04/28/18 13:00 Lymphocytes % 4.8 04/28/18 13:00 Monocytes % 5.6 04/28/18 13:00 Eosinophils % 0.0 04/28/18 13:00 Basophils % 0.1 04/28/18 13:00 Absolute Neutrophils 10.28 k/cumm (1.2-6.7) H 04/28/18 13:00 Absolute Lymphocytes 0.55 k/cumm (1.2-3.4) L 04/28/18 13:00 Absolute Monocytes 0.65 k/cumm (0.11-0.7) 04/28/18 13:00 Absolute Eosinophils 0.00 k/cumm (0.0-0.7) 04/28/18 13:00 Absolute Basophils 0.01 k/cumm (0.0-0.2) 04/28/18 13:00 Sodium 142 mmol/L (136-145) 04/29/18 06:10 Potassium 3.3 mmol/L (3.5-5.1) L 04/29/18 06:10 Chloride 108 mmol/L (98-107) H 04/29/18 06:10 Carbon Dioxide 23.5 mmol/L (21.0-32.0) 04/29/18 06:10 Anion Gap 10.5 mmol/L (3-11) 04/29/18 06:10 BUN 9 mg/dL (7-18) 04/28/18 13:00 Creatinine 0.50 mg/dL (0.55-1.02) L 04/28/18 13:00 Estimated GFR/1.73 m2 >= 60.00 (mL/min/1.73m2) 04/28/18 13:00 Glucose 110 mg/dL (70-100) H 04/28/18 13:00 Lactate 1.2 mmol/L (0.6-1.4) 04/28/18 17:08 Calcium 8.5 mg/dL (8.5-10.1) 04/28/18 13:00 Magnesium 2.1 mg/dL (1.8-2.4) 04/28/18 13:00 Total Bilirubin 0.8 mg/dL (0.2-1.0) 04/28/18 13:00 AST 15 U/L (15-37) 04/28/18 13:00 ALT 16 U/L (12-78) 04/28/18 13:00 Alkaline Phosphatase 74 U/L (46-116) 04/28/18 13:00 Troponin I < 0.02 ng/mL (0.00-0.06) 04/28/18 13:00 Total Protein 7.3 g/dL (6.4-8.2) 04/28/18 13:00 Albumin 3.2 g/dL (3.4-5.0) L 04/28/18 13:00 Urine Color Yellow (Yellow) 04/28/18 15:20 Urine Clarity Clear 04/28/18 15:20 Urine pH 6.0 (5-8) 04/28/18 15:20 Ur Specific [place] 1.010 (1.005-1.025) 04/28/18 15:20 Urine Protein Negative mg/dL (Negative) 04/28/18 15:20 Urine Ketones 40 mg/dL (Negative) H 04/28/18 15:20 Urine Blood Negative (Negative) 04/28/18 15:20 Urine Nitrite Negative (Negative) 04/28/18 15:20 Urine Bilirubin Negative (Negative) 04/28/18 15:20 Urine Urobilinogen 0.2 EU/dL (Up TO 0.2) 04/28/18 15:20 Ur Leukocyte Esterase Negative (Negative) 04/28/18 15:20 Urine Glucose Negative mg/dL (Negative) 04/28/18 15:20
--- NOTE | 2018-04-30 13:43 | PDOC.CMPRO ---
Care Management Progress Note S/O: Carla was sitting up in her chair, open to conversation. She reported being retired and residing with her in [place]. She shared that couple is independent in the community with all activities of daily living. She showed this abstract writer the scrabble board her and her significant other had been playing with and proudly stated it had been her parents. She was fully engaged and pleasant in interaction. CM reviewed CART options and Carla and Andi came to the CM office to collect playing cards. A: 67 year old female admitted to [facility] 04/28/18 cellulitis with sepsis. P: Carla will continue to be monitored closely. CM will continue to follow, and support discharge planning considerations as appropriate. Carla will transport via private vehicle with her , Andi.
--- NOTE | 2018-04-30 14:17 | CMPROGNOTE_ITS ---
Care Management Progress Note S/O: Carla was sitting up in her chair, open to conversation. She reported being retired and residing with her in [place]. She shared that couple is independent in the community with all activities of daily living. She showed this business writer the scrabble board her and her significant other had been playing with and proudly stated it had been her parents. She was fully engaged and pleasant in interaction. CM reviewed CART options and Carla and Andi came to the CM office to collect playing cards. A: 67 year old female admitted to [facility] 04/28/18 cellulitis with sepsis. P: Carla will continue to be monitored closely. CM will continue to follow, and support discharge planning considerations as appropriate. Carla will transport via private vehicle with her , Andi.
[2018-04-30 15:58] VITALS: BP 109/69; PULSE 89; RESP 18; TEMP 37.8; O2SAT 96
--- NOTE | 2018-04-30 17:31 | PGE_ITS ---
Date of service: 04/30/18 Time of Service: 17:30 Assessment and Plan (1) Bacteremia: Current visit: Yes Status: Acute continue Clindamycin 900 mg iv Q8hr and Ceftriaxone 2 gm iv daily (per [place] guidelines for treatment of cellulitis w/ sepsis); will repeat blood cultures after 3 days of iv antibiotics and if bacteremia has cleared then consider switch to oral antiobiotics (2) Abscess of parasternal chest wall: Current visit: Yes Status: Acute s/p incision and drainage of fluctuant area over sternum that apparently was hematoma and not abscess but cultures were sent off. cont. antibiotics as listed above (3) Abscess or cellulitis of chest wall: Current visit: Yes Status: Acute antibiotics as listed above, await blood cultures identification and sensitivity results (4) Rash: Current visit: No Status: Acute In all probability her rash is secondary to the strep bacteremia however if it is not clearing with IV antibiotics that she will need possible skin biopsy to rule out dermatologic spread of her neoplasm Subjective Patient reports: feels better and fever (Low-grade fever up to 39.1 last night however she is only been up to 37.8 today) Interval history since last seen: Wound culture taken from chest wall hematoma is growing strep species and normal raegan. Blood cultures are positive for group G streptococcus. Patient remains on ceftriaxone 2 g IV daily along with clindamycin 900 mg IV every 8 hours. The rash over her right breast appears to be improved however there seems to be some spreading of the rash along the right side of her neck and her right shoulder. Her left breast is diffusely erythematous. I suspect that this rash is secondary to streptococcal infection.She now has some palpable swelling along the right anterior cervical lymph node Exam Const General: cooperative, comfortable and no acute distress Nutritional Appearance: average body habitus Orientation: alert, awake and oriented x3 Neck Neck: lymphadenopathy (Right anterior cervical triangle) Lymphatic: lymphadenopathy right anterior cervical soft and mobile; nontender Chest Chest: abnormal inspection of the chest erythema (Diffuse erythema of the left breast along with serpiginous erythema along the right upper chest wall and right shoulder and right neck) Breast inspection: abnormal inspection of the breast left erythema, abnormal nipple appearance inversion, peau d'orange and retraction skin dimpling Breast palpation: abnormal palpation of the breast Chest/axillae images: 2 1. Skin above the right breast and extending to the right shoulder is erythematous in an irregular pattern 2. Left breast is diffusely erythematous with left nipple inversion as well as a scar of the left lateral breast from previous resection Objective Objective Clinical Data: Vital Signs Temp 37.8 C H 04/30/18 15:58 Pulse 89 04/30/18 15:58 Resp 18 04/30/18 15:58 BP 109/69 04/30/18 15:58 Pulse Ox 96 04/30/18 15:58 Intake & Output 04/29/18 04/30/18 04/30/18 23:59 11:59 23:59 Intake Total 1571.667 / 6508.653 9930 / 1640 240 / 240 Output Total 1050 / 1050 900 / 900 600 / 600 Balance 521.667 / 521.667 740 / 740 -360 / -360 Intake: IV 1091.667 / 4354.299 3932 / 1050 Oral 480 / 480 590 / 590 240 / 240 Output: Urine 1050 / 1050 900 / 900 600 / 600 Other: Urine Color Yellow Yellow Yellow Urine Appearance Clear Clear Clear Urine Odor Normal Stool Size Moderate Stool Characteristics Soft Formed Brown Voiding Methods Toilet Toilet Laboratory Results WBC 11.53 k/cumm (4.4-10.8) H 04/28/18 13:00 RBC 4.38 m/cumm (4.00-5.20) 04/28/18 13:00 Hgb 13.3 g/dL (12.0-15.5) 04/28/18 13:00 Hct 39.0 % (36.0-46.0) 04/28/18 13:00 MCV 89.0 fL (80-95) 04/28/18 13:00 MCH 30.4 pg (27.0-33.0) 04/28/18 13:00 MCHC 34.1 g/dL (32.0-36.0) 04/28/18 13:00 RDW 12.6 % (11.7-14.6) 04/28/18 13:00 Plt Count 167 x1000/uL (130-400) 04/28/18 13:00 MPV 10.6 fL (8.0-11.0) 04/28/18 13:00 Immature Gran % 0.3 04/28/18 13:00 Neutrophils % 89.2 04/28/18 13:00 Lymphocytes % 4.8 04/28/18 13:00 Monocytes % 5.6 04/28/18 13:00 Eosinophils % 0.0 04/28/18 13:00 Basophils % 0.1 04/28/18 13:00 Absolute Neutrophils 10.28 k/cumm (1.2-6.7) H 04/28/18 13:00 Absolute Lymphocytes 0.55 k/cumm (1.2-3.4) L 04/28/18 13:00 Absolute Monocytes 0.65 k/cumm (0.11-0.7) 04/28/18 13:00 Absolute Eosinophils 0.00 k/cumm (0.0-0.7) 04/28/18 13:00 Absolute Basophils 0.01 k/cumm (0.0-0.2) 04/28/18 13:00 Sodium 142 mmol/L (136-145) 04/29/18 06:10 Potassium 3.3 mmol/L (3.5-5.1) L 04/29/18 06:10 Chloride 108 mmol/L (98-107) H 04/29/18 06:10 Carbon Dioxide 23.5 mmol/L (21.0-32.0) 04/29/18 06:10 Anion Gap 10.5 mmol/L (3-11) 04/29/18 06:10 BUN 9 mg/dL (7-18) 04/28/18 13:00 Creatinine 0.50 mg/dL (0.55-1.02) L 04/28/18 13:00 Estimated GFR/1.73 m2 >= 60.00 (mL/min/1.73m2) 04/28/18 13:00 Glucose 110 mg/dL (70-100) H 04/28/18 13:00 Lactate 1.2 mmol/L (0.6-1.4) 04/28/18 17:08 Calcium 8.5 mg/dL (8.5-10.1) 04/28/18 13:00 Magnesium 2.1 mg/dL (1.8-2.4) 04/28/18 13:00 Total Bilirubin 0.8 mg/dL (0.2-1.0) 04/28/18 13:00 AST 15 U/L (15-37) 04/28/18 13:00 ALT 16 U/L (12-78) 04/28/18 13:00 Alkaline Phosphatase 74 U/L (46-116) 04/28/18 13:00 Troponin I < 0.02 ng/mL (0.00-0.06) 04/28/18 13:00 Total Protein 7.3 g/dL (6.4-8.2) 04/28/18 13:00 Albumin 3.2 g/dL (3.4-5.0) L 04/28/18 13:00 Urine Color Yellow (Yellow) 04/28/18 15:20 Urine Clarity Clear 04/28/18 15:20 Urine pH 6.0 (5-8) 04/28/18 15:20 Ur Specific [place] 1.010 (1.005-1.025) 04/28/18 15:20 Urine Protein Negative mg/dL (Negative) 04/28/18 15:20 Urine Ketones 40 mg/dL (Negative) H 04/28/18 15:20 Urine Blood Negative (Negative) 04/28/18 15:20 Urine Nitrite Negative (Negative) 04/28/18 15:20 Urine Bilirubin Negative (Negative) 04/28/18 15:20 Urine Urobilinogen 0.2 EU/dL (Up TO 0.2) 04/28/18 15:20 Ur Leukocyte Esterase Negative (Negative) 04/28/18 15:20 Urine Glucose Negative mg/dL (Negative) 04/28/18 15:20
[2018-04-30 20:25] VITALS: BP 98/60; PULSE 102; RESP 16; TEMP 37.3; O2SAT 95
[2018-05-01] MEDS: CLINDAMYCIN 900 MG/50 ML BAG 50 MG IVPB ×3 (01:46→17:50)
[2018-05-01 03:37] VITALS: BP 96/58; PULSE 89; RESP 16; TEMP 36.6; O2SAT 94
[2018-05-01 07:15] VITALS: BP 110/68; PULSE 101; RESP 24; TEMP 36.3; O2SAT 94
[2018-05-01] MEDS: POTASSIUM CHLORIDE/0.9% NACL 1,000 ML 100 MEQ IV ×2 (07:58→21:53)
--- NOTE | 2018-05-01 09:26 | PDOC.CMPRO ---
- If Service Date Differs Date of service: 05/01/18 Time of Service: 09:26 Care Management Progress Note S/O: Carla is sitting up in her chair eating breakfast when this customs entry writer visits. Carla states that she is feeling better daily. Carla states that her Andi will be in to visit today. CM reviewed DC plan with Carla which remains unchanged at this time. A: 67 year old female admitted to [facility] 04/28/18 for cellulitis P: Carla will return home with no anticipated services once medically cleared. Carla will F/U with PCP and plan of care as prescribed. Her Andi will transport when ready.
--- NOTE | 2018-05-01 13:57 | W.PM.PROGNOT ---
Date of service: 05/01/18 Time of Service: 13:40 Assessment and Plan (1) Bacteremia: Current visit: Yes Status: Acute Bacteremia appears to be resolving as her repeat blood cultures from 2 days ago showed no growth. Continue current treatment with ceftriaxone 2 g IV daily along with clindamycin 900 mg IV every 8 hours. I would like to see full treatment for at least 5 days before transitioning over to oral antibiotics. I will check with infectious disease service tomorrow to get the recommendation upon appropriate transition point to oral antibiotics (2) Abscess of parasternal chest wall: Current visit: Yes Status: Acute Status post incision and drainage of fluctuant suprasternal chest wound. This showed a hematoma but nevertheless grew out strep similar to the organisms and her blood cultures (3) Abscess or cellulitis of chest wall: Current visit: Yes Status: Acute antibiotics as listed above. (4) Rash: Current visit: No Status: Acute Improving. Continue current antibiotic treatment. I see no need for dermatologic biopsy at this point Subjective Patient reports: feels better Interval history since last seen: Overall the patient is feeling better. Her rash is slowly receding. Her blood cultures which were taken from April 28 demonstrated 1 out of 2 bottles positive for group G streptococcus which also grew on her wound culture taken from the incision and drainage from April 29, 2018. Blood culture from April 29 Are showing no growth x2 bottles. She is now on day #3 of clindamycin and day #2 of ceftriaxone. She needs a full 14 days of treatment however I think that we can discontinue IV antibiotics and switch her to oral clindamycin after day 5. I will call infectious disease department to get their recommendation as to when it is most appropriate to transition over to oral antibiotics however the fact that her repeat blood cultures from 2 days ago showed no growth suggests that she is responding to her treatment. Exam Const General: cooperative, no acute distress and well developed Nutritional Appearance: average body habitus Orientation: alert, awake and oriented x3 Chest Other: Her diffuse serpiginous rash appears to be receding. She still has erythema over her left breast and some patchy areas in her upper chest and right side of her neck. Skin Rashes: rashes noted (Erythematous and serpiginous diffuse rash over upper chest wall, right shoulder and right neck) Objective Objective Clinical Data: Vital Signs Temp 36.3 C L 05/01/18 07:15 Pulse 101 H 05/01/18 07:15 Resp 24 05/01/18 07:15 BP 110/68 05/01/18 07:15 Pulse Ox 94 L 05/01/18 07:15 Intake & Output 04/30/18 05/01/18 05/01/18 23:59 11:59 23:59 Intake Total 1460 / 1460 1800 / 1800 300 / 300 Output Total 1200 / 1200 2200 / 2200 Balance 260 / 260 -400 / -400 300 / 300 Intake: IV 1100 / 1100 1050 / 1050 Oral 360 / 360 750 / 750 300 / 300 Output: Urine 1200 / 1200 2200 / 2200 Other: Urine Color Yellow Yellow Urine Appearance Clear Clear Stool Size Moderate Stool Characteristics Soft Formed Brown Voiding Methods Toilet Toilet Laboratory Results WBC 11.53 k/cumm (4.4-10.8) H 04/28/18 13:00 RBC 4.38 m/cumm (4.00-5.20) 04/28/18 13:00 Hgb 13.3 g/dL (12.0-15.5) 04/28/18 13:00 Hct 39.0 % (36.0-46.0) 04/28/18 13:00 MCV 89.0 fL (80-95) 04/28/18 13:00 MCH 30.4 pg (27.0-33.0) 04/28/18 13:00 MCHC 34.1 g/dL (32.0-36.0) 04/28/18 13:00 RDW 12.6 % (11.7-14.6) 04/28/18 13:00 Plt Count 167 x1000/uL (130-400) 04/28/18 13:00 MPV 10.6 fL (8.0-11.0) 04/28/18 13:00 Immature Gran % 0.3 04/28/18 13:00 Neutrophils % 89.2 04/28/18 13:00 Lymphocytes % 4.8 04/28/18 13:00 Monocytes % 5.6 04/28/18 13:00 Eosinophils % 0.0 04/28/18 13:00 Basophils % 0.1 04/28/18 13:00 Absolute Neutrophils 10.28 k/cumm (1.2-6.7) H 04/28/18 13:00 Absolute Lymphocytes 0.55 k/cumm (1.2-3.4) L 04/28/18 13:00 Absolute Monocytes 0.65 k/cumm (0.11-0.7) 04/28/18 13:00 Absolute Eosinophils 0.00 k/cumm (0.0-0.7) 04/28/18 13:00 Absolute Basophils 0.01 k/cumm (0.0-0.2) 04/28/18 13:00 Sodium 142 mmol/L (136-145) 04/29/18 06:10 Potassium 3.3 mmol/L (3.5-5.1) L 04/29/18 06:10 Chloride 108 mmol/L (98-107) H 04/29/18 06:10 Carbon Dioxide 23.5 mmol/L (21.0-32.0) 04/29/18 06:10 Anion Gap 10.5 mmol/L (3-11) 04/29/18 06:10 BUN 9 mg/dL (7-18) 04/28/18 13:00 Creatinine 0.50 mg/dL (0.55-1.02) L 04/28/18 13:00 Estimated GFR/1.73 m2 >= 60.00 (mL/min/1.73m2) 04/28/18 13:00 Glucose 110 mg/dL (70-100) H 04/28/18 13:00 Lactate 1.2 mmol/L (0.6-1.4) 04/28/18 17:08 Calcium 8.5 mg/dL (8.5-10.1) 04/28/18 13:00 Magnesium 2.1 mg/dL (1.8-2.4) 04/28/18 13:00 Total Bilirubin 0.8 mg/dL (0.2-1.0) 04/28/18 13:00 AST 15 U/L (15-37) 04/28/18 13:00 ALT 16 U/L (12-78) 04/28/18 13:00 Alkaline Phosphatase 74 U/L (46-116) 04/28/18 13:00 Troponin I < 0.02 ng/mL (0.00-0.06) 04/28/18 13:00 Total Protein 7.3 g/dL (6.4-8.2) 04/28/18 13:00 Albumin 3.2 g/dL (3.4-5.0) L 04/28/18 13:00 Urine Color Yellow (Yellow) 04/28/18 15:20 Urine Clarity Clear 04/28/18 15:20 Urine pH 6.0 (5-8) 04/28/18 15:20 Ur Specific [place] 1.010 (1.005-1.025) 04/28/18 15:20 Urine Protein Negative mg/dL (Negative) 04/28/18 15:20 Urine Ketones 40 mg/dL (Negative) H 04/28/18 15:20 Urine Blood Negative (Negative) 04/28/18 15:20 Urine Nitrite Negative (Negative) 04/28/18 15:20 Urine Bilirubin Negative (Negative) 04/28/18 15:20 Urine Urobilinogen 0.2 EU/dL (Up TO 0.2) 04/28/18 15:20 Ur Leukocyte Esterase Negative (Negative) 04/28/18 15:20 Urine Glucose Negative mg/dL (Negative) 04/28/18 15:20
--- NOTE | 2018-05-01 15:41 | CHAPLAIN ---
I visited with Carla and her . He spoke more than she did. They both pleasant and engaged in conversation, telling me they moved here from [place] to [place] 35 years ago. We did not discuss why Carla is here, but I will continue to visit.
--- NOTE | 2018-05-01 15:52 | W.PM.PROGNOT ---
Date of service: 05/01/18 Time of Service: 16:02 Assessment and Plan (1) Abscess or cellulitis of chest wall: Current visit: Yes Status: Acute rash is much improved. Continue with antibiotics per Hospitalist (2) Abscess of parasternal chest wall: Current visit: Yes Status: Acute Keep area covered. May shower and let soapy water run over wound. Clean gently around the open area. Gently pad dry and cover with bandaid Subjective Interval history since last seen: Feeling better. She is sitting in her chair very comfortable. Feels like the edema in her breasts has resolved. The breasts are no longer tender Exam Chest Chest/axillae images: 1. swelling of her lymph node. Redness has decreased 2. Rash is slightly improved on her right shoulder 3. Rash on her chest and breasts-marked improvement. Objective Objective Clinical Data: Vital Signs Temp 97.3 F L 05/01/18 07:15 Pulse 101 H 05/01/18 07:15 Resp 24 05/01/18 07:15 BP 110/68 05/01/18 07:15 Pulse Ox 94 L 05/01/18 07:15 Intake & Output 04/30/18 05/01/18 05/01/18 23:59 11:59 23:59 Intake Total 1460 / 1460 1800 / 1800 300 / 300 Output Total 1200 / 1200 2200 / 2200 600 / 600 Balance 260 / 260 -400 / -400 -300 / -300 Intake: IV 1100 / 1100 1050 / 1050 Oral 360 / 360 750 / 750 300 / 300 Output: Urine 1200 / 1200 2200 / 2200 600 / 600 Other: Urine Color Yellow Yellow Yellow Urine Appearance Clear Clear Clear Stool Size Moderate Stool Characteristics Soft Formed Brown Voiding Methods Toilet Toilet Laboratory Results WBC 11.53 k/cumm (4.4-10.8) H 04/28/18 13:00 RBC 4.38 m/cumm (4.00-5.20) 04/28/18 13:00 Hgb 13.3 g/dL (12.0-15.5) 04/28/18 13:00 Hct 39.0 % (36.0-46.0) 04/28/18 13:00 MCV 89.0 fL (80-95) 04/28/18 13:00 MCH 30.4 pg (27.0-33.0) 04/28/18 13:00 MCHC 34.1 g/dL (32.0-36.0) 04/28/18 13:00 RDW 12.6 % (11.7-14.6) 04/28/18 13:00 Plt Count 167 x1000/uL (130-400) 04/28/18 13:00 MPV 10.6 fL (8.0-11.0) 04/28/18 13:00 Immature Gran % 0.3 04/28/18 13:00 Neutrophils % 89.2 04/28/18 13:00 Lymphocytes % 4.8 04/28/18 13:00 Monocytes % 5.6 04/28/18 13:00 Eosinophils % 0.0 04/28/18 13:00 Basophils % 0.1 04/28/18 13:00 Absolute Neutrophils 10.28 k/cumm (1.2-6.7) H 04/28/18 13:00 Absolute Lymphocytes 0.55 k/cumm (1.2-3.4) L 04/28/18 13:00 Absolute Monocytes 0.65 k/cumm (0.11-0.7) 04/28/18 13:00 Absolute Eosinophils 0.00 k/cumm (0.0-0.7) 04/28/18 13:00 Absolute Basophils 0.01 k/cumm (0.0-0.2) 04/28/18 13:00 Sodium 142 mmol/L (136-145) 04/29/18 06:10 Potassium 3.3 mmol/L (3.5-5.1) L 04/29/18 06:10 Chloride 108 mmol/L (98-107) H 04/29/18 06:10 Carbon Dioxide 23.5 mmol/L (21.0-32.0) 04/29/18 06:10 Anion Gap 10.5 mmol/L (3-11) 04/29/18 06:10 BUN 9 mg/dL (7-18) 04/28/18 13:00 Creatinine 0.50 mg/dL (0.55-1.02) L 04/28/18 13:00 Estimated GFR/1.73 m2 >= 60.00 (mL/min/1.73m2) 04/28/18 13:00 Glucose 110 mg/dL (70-100) H 04/28/18 13:00 Lactate 1.2 mmol/L (0.6-1.4) 04/28/18 17:08 Calcium 8.5 mg/dL (8.5-10.1) 04/28/18 13:00 Magnesium 2.1 mg/dL (1.8-2.4) 04/28/18 13:00 Total Bilirubin 0.8 mg/dL (0.2-1.0) 04/28/18 13:00 AST 15 U/L (15-37) 04/28/18 13:00 ALT 16 U/L (12-78) 04/28/18 13:00 Alkaline Phosphatase 74 U/L (46-116) 04/28/18 13:00 Troponin I < 0.02 ng/mL (0.00-0.06) 04/28/18 13:00 Total Protein 7.3 g/dL (6.4-8.2) 04/28/18 13:00 Albumin 3.2 g/dL (3.4-5.0) L 04/28/18 13:00 Urine Color Yellow (Yellow) 04/28/18 15:20 Urine Clarity Clear 04/28/18 15:20 Urine pH 6.0 (5-8) 04/28/18 15:20 Ur Specific [place] 1.010 (1.005-1.025) 04/28/18 15:20 Urine Protein Negative mg/dL (Negative) 04/28/18 15:20 Urine Ketones 40 mg/dL (Negative) H 04/28/18 15:20 Urine Blood Negative (Negative) 04/28/18 15:20 Urine Nitrite Negative (Negative) 04/28/18 15:20 Urine Bilirubin Negative (Negative) 04/28/18 15:20 Urine Urobilinogen 0.2 EU/dL (Up TO 0.2) 04/28/18 15:20 Ur Leukocyte Esterase Negative (Negative) 04/28/18 15:20 Urine Glucose Negative mg/dL (Negative) 04/28/18 15:20
[2018-05-01 16:14] VITALS: BP 111/62; PULSE 85; RESP 18; TEMP 36.8; O2SAT 94
[2018-05-02 00:04] VITALS: BP 105/49; PULSE 82; RESP 15; TEMP 36.8; O2SAT 97
[2018-05-02] MEDS: CLINDAMYCIN 900 MG/50 ML BAG 50 MG IVPB ×2 (01:57→09:43)
[2018-05-02 07:19] VITALS: BP 118/68; PULSE 99; RESP 18; TEMP 36.4; O2SAT 95
[2018-05-02] MEDS: Normal Saline Flush 10 ML SYR IVP ×2 (09:43→11:39)
--- NOTE | 2018-05-02 11:42 | PDOC.CMPRO ---
- If Service Date Differs Date of service: 05/02/18 Time of Service: 11:42 Care Management Progress Note S/O: Carla is sitting up in her chair this morning, pleasant throughout discussion. Carla continues on IV antibiotics at this time, her IVF have been discontinued. Carla is hopeful to return home tomorrow. Her Andi continues to visit with her and she ambulates in the halls frequently. A: 67 year old female admitted to [facility] 04/28/18 for cellulitis P: Carla will return home with no anticipated services once medically cleared. Carla will F/U with PCP and plan of care as prescribed. Her Andi will transport when ready.
--- NOTE | 2018-05-02 11:54 | CMPROGNOTE_ITS ---
- If Service Date Differs Date of service: 05/02/18 Time of Service: 11:42 Care Management Progress Note S/O: Carla is sitting up in her chair this morning, pleasant throughout discussion. Carla continues on IV antibiotics at this time, her IVF have been discontinued. Carla is hopeful to return home tomorrow. Her Andi continues to visit with her and she ambulates in the halls frequently. A: 67 year old female admitted to [facility] 04/28/18 for cellulitis P: Carla will return home with no anticipated services once medically cleared. Carla will F/U with PCP and plan of care as prescribed. Her Andi will transport when ready.
--- NOTE | 2018-05-02 13:14 | W.PM.PROGNOT ---
Date of service: 05/02/18 Time of Service: 13:14 Assessment and Plan (1) Bacteremia: Current visit: Yes Status: Acute Blood cultures from April 29 have remained negative. I discussed the patient's case with Dr. Abdiel Amaya and he indicated that if the patient has no other source of infection and her cellulitis such as an implantable device or prosthetic joint that is long is the bacteremia is clearing she could be switched from IV to oral antibiotics.I will switch her from IV clindamycin and ceftriaxone to oral clindamycin and add a probiotic to her regimen if she has no fever overnight she can be discharged home tomorrow (2) Abscess of parasternal chest wall: Current visit: Yes Status: Acute Status post incision and drainage of fluctuant suprasternal chest wound. This showed a hematoma but nevertheless grew out strep similar to the organisms and her blood cultures (3) Abscess or cellulitis of chest wall: Current visit: Yes Status: Acute antibiotics as listed above. (4) Rash: Current visit: No Status: Acute Improving. Continue current antibiotic treatment. I see no need for dermatologic biopsy at this point Subjective Patient reports: no new complaints and feels better Exam Const General: cooperative, comfortable, no acute distress and well developed Nutritional Appearance: average body habitus Orientation: alert, awake and oriented x3 Neck Lymphatic: lymphadenopathy Chest Chest: abnormal inspection of the chest erythema (Diffuse erythema of the left breast along with serpiginous erythema along the right upper chest wall and right shoulder and right neck) Breast inspection: abnormal inspection of the breast Breast palpation: abnormal palpation of the breast Skin General skin exam: erythema (The serpiginous erythematous rash over her chest and neck are fading and more diffuse.) Rashes: rashes noted (Erythematous and serpiginous diffuse rash over upper chest wall, right shoulder and right neck) Psych Appearance: grossly normal and well kempt Mental Status: mental status grossly normal Mood: congruent mood Affect: normal affect Attitude: cooperative Thought Process: normal Thought Content: normal Insight: insight good Judgment: judgment good Objective Objective Clinical Data: Vital Signs Temp 36.4 C L 05/02/18 07:19 Pulse 99 H 05/02/18 07:19 Resp 18 05/02/18 07:19 BP 118/68 05/02/18 07:19 Pulse Ox 95 05/02/18 07:19 Intake & Output 05/01/18 05/02/1818/18 23:59 11:59 23:59 Intake Total 1640 / 1640 290 / 290 Output Total 1550 / 1550 1000 / 1000 Balance 90 / 90 -710 / -710 Intake: IV 1100 / 1100 50 / 50 Oral 540 / 540 240 / 240 Output: Urine 1550 / 1550 1000 / 1000 Other: Urine Color Yellow Yellow Urine Appearance Clear Clear Urine Odor Normal Normal Voiding Methods Toilet Toilet Laboratory Results WBC 11.53 k/cumm (4.4-10.8) H 04/28/18 13:00 RBC 4.38 m/cumm (4.00-5.20) 04/28/18 13:00 Hgb 13.3 g/dL (12.0-15.5) 04/28/18 13:00 Hct 39.0 % (36.0-46.0) 04/28/18 13:00 MCV 89.0 fL (80-95) 04/28/18 13:00 MCH 30.4 pg (27.0-33.0) 04/28/18 13:00 MCHC 34.1 g/dL (32.0-36.0) 04/28/18 13:00 RDW 12.6 % (11.7-14.6) 04/28/18 13:00 Plt Count 167 x1000/uL (130-400) 04/28/18 13:00 MPV 10.6 fL (8.0-11.0) 04/28/18 13:00 Immature Gran % 0.3 04/28/18 13:00 Neutrophils % 89.2 04/28/18 13:00 Lymphocytes % 4.8 04/28/18 13:00 Monocytes % 5.6 04/28/18 13:00 Eosinophils % 0.0 04/28/18 13:00 Basophils % 0.1 04/28/18 13:00 Absolute Neutrophils 10.28 k/cumm (1.2-6.7) H 04/28/18 13:00 Absolute Lymphocytes 0.55 k/cumm (1.2-3.4) L 04/28/18 13:00 Absolute Monocytes 0.65 k/cumm (0.11-0.7) 04/28/18 13:00 Absolute Eosinophils 0.00 k/cumm (0.0-0.7) 04/28/18 13:00 Absolute Basophils 0.01 k/cumm (0.0-0.2) 04/28/18 13:00 Sodium 142 mmol/L (136-145) 04/29/18 06:10 Potassium 3.3 mmol/L (3.5-5.1) L 04/29/18 06:10 Chloride 108 mmol/L (98-107) H 04/29/18 06:10 Carbon Dioxide 23.5 mmol/L (21.0-32.0) 04/29/18 06:10 Anion Gap 10.5 mmol/L (3-11) 04/29/18 06:10 BUN 9 mg/dL (7-18) 04/28/18 13:00 Creatinine 0.50 mg/dL (0.55-1.02) L 04/28/18 13:00 Estimated GFR/1.73 m2 >= 60.00 (mL/min/1.73m2) 04/28/18 13:00 Glucose 110 mg/dL (70-100) H 04/28/18 13:00 Lactate 1.2 mmol/L (0.6-1.4) 04/28/18 17:08 Calcium 8.5 mg/dL (8.5-10.1) 04/28/18 13:00 Magnesium 2.1 mg/dL (1.8-2.4) 04/28/18 13:00 Total Bilirubin 0.8 mg/dL (0.2-1.0) 04/28/18 13:00 AST 15 U/L (15-37) 04/28/18 13:00 ALT 16 U/L (12-78) 04/28/18 13:00 Alkaline Phosphatase 74 U/L (46-116) 04/28/18 13:00 Troponin I < 0.02 ng/mL (0.00-0.06) 04/28/18 13:00 Total Protein 7.3 g/dL (6.4-8.2) 04/28/18 13:00 Albumin 3.2 g/dL (3.4-5.0) L 04/28/18 13:00 Urine Color Yellow (Yellow) 04/28/18 15:20 Urine Clarity Clear 04/28/18 15:20 Urine pH 6.0 (5-8) 04/28/18 15:20 Ur Specific [place] 1.010 (1.005-1.025) 04/28/18 15:20 Urine Protein Negative mg/dL (Negative) 04/28/18 15:20 Urine Ketones 40 mg/dL (Negative) H 04/28/18 15:20 Urine Blood Negative (Negative) 04/28/18 15:20 Urine Nitrite Negative (Negative) 04/28/18 15:20 Urine Bilirubin Negative (Negative) 04/28/18 15:20 Urine Urobilinogen 0.2 EU/dL (Up TO 0.2) 04/28/18 15:20 Ur Leukocyte Esterase Negative (Negative) 04/28/18 15:20 Urine Glucose Negative mg/dL (Negative) 04/28/18 15:20
[2018-05-02 15:29] VITALS: BP 115/74; PULSE 88; RESP 18; TEMP 37.1; O2SAT 97
[2018-05-02] MEDS: Clindamycin 150 MG CAP 450 MG PO ×2 (16:20→20:59)
[2018-05-02 16:54] LABS: Anion Gap 9.8 mmol/L (3-11); BUN 9 mg/dL (7-18); CO2 29.2 mmol/L (21.0-32.0); Calcium 8.7 mg/dL (8.5-10.1); Chloride 102 mmol/L (98-107); Glucose 99 mg/dL (70-100); Potassium 4.1 mmol/L (3.5-5.1); Sodium 141 mmol/L (136-145)
[2018-05-02 17:07] LABS: Magnesium 2.1 mg/dL (1.8-2.4)
[2018-05-02] MEDS: Lactobacillus Acidophilus CAP 1 CAP PO (20:59)
[2018-05-03 05:03] VITALS: BP 98/61; PULSE 87; RESP 16; TEMP 36.8; O2SAT 96
[2018-05-03] MEDS: Clindamycin 150 MG CAP 450 MG PO ×2 (05:03→10:17)
[2018-05-03 08:13] VITALS: BP 116/78; PULSE 99; RESP 20; TEMP 36.7; O2SAT 96
[2018-05-03] MEDS: Lactobacillus Acidophilus CAP 1 CAP PO (08:31)
--- NOTE | 2018-05-03 08:58 | CMDISCH_ITS ---
- If Service Date Differs Date of service: 05/03/18 Time of Service: 08:57 LACE Index Scoring Tool - Questions: Length of Stay (in days): 4 - 6 Acuity (Admit via E.D.?): Yes Comorbidities: Metastatic Solid Tumor E.D. Visits: 1 - Answers: Total Score: 13 Risk of Readmission: High Risk Care Management Discharge Reason for Hospitalization: Cellulitis with Sepsis Discharge Plan: Carla is sitting up in her chair when this securities underwriter visits. CM discussed the information that was requested to be faxed to [facility] which Carla was thankful for. Carla will return home with no services. She will F/U with PCP and plan of care as prescribed. Her will transport her home. Patient/Family Education Needs: Review DC instructions, any limitations, and discuss Ask Me Three
--- NOTE | 2018-05-03 13:38 | W.PM.DS.N ---
Date of service: 05/03/18 Time of Service: 13:39 DS: Diagnosis Discharge Diagnosis (1) Bacteremia: Status: Acute Asessment and Plan: Patient had blood cultures obtained on admission and was given a dose of Levaquin 750 mg IV in the emergency room. She was subsequently switched to clindamycin 900 mg IV every 8 hours along with ceftriaxone 2 g IV daily. She was continued on parenteral antibiotics up until May 02, 2018 at which time she was switched to oral antibiotics. Initial blood cultures grew 1 out of 2 bottles positive for group G strep and her chest wall wound grew similar bacteria. Her chest wall abscess was drained by Dr. Taylor Goodman who was consulted on admission. Chest wall wound was treated by wound care nurse with daily dressing changes and washing of the wound. Patient's erysipelas rash improved with continued antibiotic treatment. Patient remained afebrile and was discharged home for another 9 days of oral clindamycin along with probiotics to prevent antibiotic associated diarrhea. Patient is instructed to follow-up with both her primary care provider within the next week as well as her oncologist. (2) Abscess of parasternal chest wall: Status: Acute Asessment and Plan: As above (3) Abscess or cellulitis of chest wall: Status: Acute Asessment and Plan: As above (4) Rash: Status: Acute Asessment and Plan: Resolving with treatment of her strep infection Discharge Plan Disposition Patient Disposition: HOME Condition: Improving Discharge Details Reason For Visit: CELLULITIS, Group G Strep bacteremia Admit Date/Time: 04/28/18 20:26 Admit Provider: Nato Gudino Attending Provider: Nato Gudino [facility] Course: 65-year-old female with history of recurrent breast cancer now with involvement of her breast cancer involving her chest wall present with several days of anorexia malaise weakness and 1 day of diffuse erythematous rash over chest status with fever and chills and low blood pressure. Evaluation in the emergency room included a CT angiogram of the chest was negative for PE blood cultures were obtained and she was started on Levaquin. Dr. Nato Gudino, night hospitalist, did her admission and appropriately changed her antibiotics to clindamycin. I added ceftriaxone 2 g daily and consulted with surgery. Dr. Taylor Goodman saw the patient and incised and drained the chest wall wound which appear to be hematoma. Subsequently the wound culture grew group G Streptococcus as did her blood cultures. 1 out of 2 cultures were positive on admission. She was continued on IV clindamycin 900 mg IV every 8 hours along with Rocephin 2 g IV daily from April 28, 2018 through May 02, 2018. Follow-up blood cultures were obtained on April 29, 2018 because she was still having fevers. These cultures came back no growth ?2 sets. She defervesced on April 29, 2018. Her last temperature elevation was on April 30, 2018 at 37.8. She remained afebrile throughout the rest of her course. Her rash began to fade and become more diffuse and faint pink. She began to feel marked improvement over the first 24-48 hours but I kept her as an inpatient for continued IV antibiotics until it was sure that she had no recurrence and we did obtain a negative blood cultures. I consult with [facility] infectious disease service it was their impression as long as she had no hardware such as prosthetic heart valves or joint replacement as a nidus of infection that she can be switched to oral antibiotics and she seemed to be clearing her bacteremia quickly. Patient was started on probiotics to prevent antibacterial associated diarrhea. Patient will need another 9 days of antibiotic treatment for a total treatment course of 14 days. Home Meds and New Rx's Prescriptions: New clindamycin HCl 150 mg Capsule 450 mg PO Q6H 9 Days Qty: 81 RF: 0 acidophilus-pectin, citrus 25 million cell -100 mg Tablet 1 cap PO TID Qty: 90 RF: 0 Continue exemestane 25 mg Tablet 25 mg PO DAILY RF: 0 Discharge Instructions Instructions: Bacteremia (DC) Additional Instructions: Wash chest wall wound daily with antibacterial soap and water. Pat the wound dry and apply dressings as recommended by wound care nurse Print Language: Portuguese Activity:: Activity as Tolerated Equipment/Supplies:: No Equipment Needed Diet:: Regular Discharge Orders Discharge Orders: Discharge Order (Routine); Ordered 05/03/18 Ordered By: Keanu Crow DS: Summary Status at Discharge Functional status at discharge: independent ambulation Overall status at discharge: patient is back to baseline Time Spent with Patient Greater than 30 minutes Exam Const General: cooperative, healthy appearing, no acute distress and well developed Nutritional Appearance: average body habitus Orientation: alert, awake and oriented x3 Neck Other: Diffuse erythematous rash is now faded to a faint pink/salmon color and is now receiving from her neck and chest wall Chest Other: Her diffuse erythematous rash over her chest is now receding to a faint pink/salmon color and is markedly improved in that it has faded and more diffuse and receding DS: Data Vitals/I&O Vitals and I&O: Vital Signs Temp 36.7 C 05/03/18 08:13 Pulse 99 H 05/03/18 08:13 Resp 20 05/03/18 08:13 BP 116/78 05/03/18 08:13 Pulse Ox 96 05/03/18 08:13 Intake & Output 05/02/18 05/03/18 05/03/18 23:59 11:59 23:59 Intake Total 1580 / 1580 1090 / 1090 240 / 240 Output Total 1200 / 1200 2100 / 2100 Balance 380 / 380 -1010 / -1010 240 / 240 Intake: IV 1100 / 1100 Oral 480 / 480 1090 / 1090 240 / 240 Output: Urine 1200 / 1200 2100 / 2100 Other: Urine Color Yellow Yellow Urine Appearance Clear Clear Urine Odor Normal Normal Voiding Methods Toilet Toilet Labs on day of discharge: Labs from last 24 hours 05/02/18 16:28 Sodium 141 Potassium 4.1 Chloride 102 Carbon Dioxide 29.2 Anion Gap 9.8 BUN 9 Creatinine 0.60 Estimated GFR/1.73 m2 >= 60.00 Glucose 99 Calcium 8.7 Magnesium 2.1 Preliminary micro results at discharge 04/29/18 10:15 Abscess Culture - Preliminary Chest - Left Upper Group G Streptococcus Staphylococcus Aureus Normal Brianda 04/29/18 21:50 Blood Culture - Preliminary Blood NO GROWTH 72 HOURS 04/29/18 21:35 Blood Culture - Preliminary Blood NO GROWTH 72 HOURS 04/28/18 13:00 Blood Culture - Preliminary Blood NO GROWTH 96 HOURS
== END 2018-05-03 15:15 | disposition home or self-care (01) | DRG 872 ==
LOC: ER 20:50 → MS 05-03 13:38
PROVIDERS: Admitting Provider General Practice; Emergency Provider Nurse Practitioner Family; PCP Family Medicine; Visit Provider Internal Medicine
DX: R78.81 Bacteremia (principal); L02.213 Cutaneous abscess of chest wall; L03.313 Cellulitis of chest wall; C79.51 Secondary malignant neoplasm of bone; I96 Gangrene, not elsewhere classified; R21 Rash and other nonspecific skin eruption; M79.81 Nontraumatic hematoma of soft tissue; B95.61 Methicillin susceptible Staphylococcus aureus infection as the cause of diseases classified elsewhere; B95.4 Other streptococcus as the cause of diseases classified elsewhere; C50.912 Malignant neoplasm of unspecified site of left female breast; Z88.0 Allergy status to penicillin; Z88.2 Allergy status to sulfonamides
CPT/HCPCS: 10140; 36415; 71275; 80048; 80051; 80053; 87040; 87077; 93005; 96361; 96365; 96366; 99222; 99231; 99232; 99239; 99285; 81003; 83605; 83735; 84484; 85025; 87070; 87075; 87186; 87205; 93010; J1956; J3490

== ENCOUNTER 2018-12-26 16:18 | Outpatient (CLI) | payer MEDICARE, BC, SELFPAY ==
[2018-12-26 17:25] LABS: Abs Immature Grans 0.01 k/cumm (0.0-0.09); Absolute Basophil Count 0.02 k/cumm (0.0-0.2); Absolute Eosinophil Count 0.16 k/cumm (0.0-0.7); Absolute Lymphocyte Count 1.03 k/cumm (1.2-3.4); Absolute Monocyte Count 0.61 k/cumm (0.11-0.7); Absolute Neutrophil Count 3.28 k/cumm (1.2-6.7); Basophils % 0.4; Eosinophils % 3.1; HCT 37.2 % (36.0-46.0); HGB 12.6 g/dL (12.0-15.5); Immature Grans % 0.2; Lymphocytes % 20.2; Mean Corp. HGB Concentration 33.9 g/dL (32.0-36.0); Mean Corpuscular Volume 100.3 fL (80-95); Mean Platelet Volume 9.9 fL (8.0-11.0); Monocytes % 11.9; Neutrophils % 64.2; Platelet Count 308 x1000/uL (130-400); RBC 3.71 m/cumm (4.00-5.20); RBC Distribution Width 13.6 % (11.7-14.6); White Blood Cell Count 5.11 k/cumm (4.4-10.8)
[2018-12-26 18:20] LABS: ALT 26 U/L (12-78); AST 19 U/L (15-37); Albumin 3.6 g/dL (3.4-5.0); Alkaline Phosphatase 73 U/L (46-116); Anion Gap 8.8 mmol/L (3-11); BUN 6 mg/dL (7-18); Bilirubin, Total 0.2 mg/dL (0.2-1.0); CO2 28.2 mmol/L (21.0-32.0); CREATININE 0.36 mg/dL (0.55-1.02); Calcium 8.7 mg/dL (8.5-10.1); Chloride 101 mmol/L (98-107); Glucose 94 mg/dL (70-100); Sodium 138 mmol/L (136-145); Total Protein 6.5 g/dL (6.4-8.2)
[2018-12-28 19:54] LABS: Cancer Ag 15-3 116 U/mL (<30)
== END 2018-12-26 16:38 ==
PROVIDERS: PCP Family Medicine; Visit Provider Internal Medicine Medical Oncology
DX: C50.912 Malignant neoplasm of unspecified site of left female breast (principal); M89.9 Disorder of bone, unspecified
CPT/HCPCS: 36415; 80053; 86304; 85025; 86300

== ENCOUNTER 2019-05-11 16:57 | Inpatient (IN) | payer MEDICARE, BC, SELFPAY ==
[2019-05-11] VITALS (49 sets, daily range): BP systolic 123–154; BP diastolic 57–97; PULSE 80–107; RESP 15–31; TEMP 36.8–36.9; O2SAT 95–99
--- NOTE | 2019-05-11 17:31 | ED.GENADUL_ITS ---
Discharge Plan Disposition Condition: Stable Discharge Details Chief Complaint: AMS/LOC Admit Date/Time: 05/12/19 16:16 Admit Provider: Nato Mackay Attending Provider: Jevon Urena Primary Care Provider: Brandy White ED Provider: Neida De Guzman Discharge Instructions Activity:: No Strenuous activity, climbing ladders, operating machinery, or driving. Equipment/Supplies:: No Equipment Needed Diet:: As Tolerated Discharge Orders Discharge Orders: Discharge Order (Routine); Ordered 05/13/19 Ordered By: Jevon Urena Discharge Data Discharge Date/Time-TO BE ENTERED AT DEPARTURE: 05/11/19 23:04 Medical Decision Making Carla Rivera is a 68-year-old woman with a history of metastatic breast cancer currently being treated with chemotherapy who presented to the emergency department for an episode of a traumatic fall with loss of consciousness that occurred approximately 4 hours ago with subsequent transient personality changes that have now resolved and residual right upper arm pain. On exam patient appears chronically ill but acutely nontoxic. Benign cardiopulmonary exam. Tenderness of the right proximal humerus without deformity or crepitus, no overlying skin changes. No clavicle, scapular distal humerus, elbow tenderness. Radial pulses intact and symmetric. Right arm neurovascularly intact. Chronic unchanged nonpitting lower extremity edema bilaterally. No posterior calf tenderness to palpation. Concern for acute intracranial process including brain mets, intracranial hemorrhage, metabolic/electrolyte derangement, pulmonary embolism, arrhythmia, infectious etiology, humerus fracture, other. Exam/history is not consistent with sepsis, significant C-spine trauma, acute aortic etiology. Plan for EKG, CT head, IV, telemetry, chest x-ray, shoulder x- ray, screening labs. Will monitor and reassess. CT head negative for acute intracranial process. D-dimer elevated. Labs nondiagnostic. Shoulder x-ray shows acute humeral head fracture. Ortho contact, concern for possible glenoid fx, requests CT scapula. Chest x-ray shows opacities in the left base, atelectasis versus pneumonia. Patient with no clinical pneumonia. Record review from recent CT chest at [facility] shows left- sided atelectasis, although images not available for viewing. Doubt pneumonia at this time. I discussed plan for CT chest and scapula with Pt, though she has concerns about the amt of radiation she has been receiving from imaging and does not want to undergo CT at this time. I had a lengthy discussion with the Pt re: risks and benefits of CT and she continues to refuse. At this time given unclear etiology of fall (syncope vs new onset seizure?), plan for keppra and admission. Pt is amenable to the plan. Clinical Impression: loss of consciousness, humerus fracture Disposition: [facility] inpatient Medical Records Medical records reviewed: Yes I reviewed the patient's medical records. Imaging Data Radiologic Study: Attestation: I personally reviewed and interpreted this imaging study as follows: Radiologist's impression: EXAM: CT HEAD WO CLINICAL HISTORY: LOC, syncope vs seizure. TECHNIQUE: Multiple contiguous axial images of the head were obtained. COMPARISON: No exams were available for comparison FINDINGS: The ventricles and sulci are consistent with the patient's age no acute intracranial hemorrhage, midline shift, or mass effect is identified. The ventricles are intact. The basilar cisterns are patent. The visualized para nasal sinuses are clear. The mastoid air cells are well pneumatized. The calvarium is intact. There is asymmetric enlargement of the left sternocleidomastoid muscle. This area measures 4.6 x 2.8 cm. IMPRESSION: No acute intracranial hemorrhage. No skull fracture. Asymmetric enlargement of the left sternocleidomastoid muscle. A soft tissue mass cannot be excluded. Hematoma should also be considered. EXAM: XR SHOULDER RT COMPLETE 2+V INDICATION: trauma, pain. COMPARISON: No exams were available for comparison TECHNIQUE: 2D digital imaging was performed. FINDINGS: There is a fracture of the surgical neck of the right humerus. The fracture extends superiorly and laterally into the greater tuberosity. There is mild impaction of the fracture. No other fracture or dislocation is identified. The glenohumeral joint appears well maintained as is the acromioclavicular joint. The soft tissues are unremarkable. IMPRESSION: Impacted fracture involving the surgical neck of the right humerus. EXAM: XR CHEST 1V IN DI DEPT INDICATION: trauma, pain. TECHNIQUE: 2D digital imaging was performed. FINDINGS: There is again seen elevation of the left hemidiaphragm. The heart size and pulmonary vasculature are within normal limits. Increased opacities are present in the left lung base these may represent atelectasis scarring or pneumonia. No pleural effusion or pneumothorax is identified. There are clips again seen in the left axilla. The bones appear unremarkable. IMPRESSION: Opacities in the left lung base. This may represent atelectasis, scarring, or p neumonia. Lab Data Lab results reviewed: Yes I reviewed the patient's lab results. ECG Data Attestation: I personally reviewed and interpreted this ECG (s) as follows: Interpretation: EKG shows sinus rhythm at 95, normal axis, suspect precordial lead reversal, no STEMI, no WPW, no Brugada, no long QT, no HOCM, nondiagnostic EKG HPI General Mode of arrival: ambulatory . Date/Time Provider Initiated Documentation: 05/11/19 17:13 . Limitations to Documentation: no limitations . Information obtained by: patient, family, RN notes reviewed and old records reviewed . HPI Narrative: Carla Rivera is a 68 y/o woman with history of metastatic breast cancer presenting to the emergency department with fall. Patient is accompanied by her and sister who also provide the history. Patient states that she was in her home with her earlier today. Patient remembers being alone upstairs and being in her usual state of health. Patient has been reports that he heard her fall and came upstairs immediately, this occurred approximately 4 hours ago. He reports that patient was responsive but not comprehensible. He reports that patient was able to get up and walk after several minutes, but she seemed irritable and irrational, not like herself. He reports that patient had urinary incontinence. Patient states that the next thing she remembers after being upstairs is sitting on a couch downstairs. Patient has been walking without issue since this time. Patient's reports that she has gradually been returning to her usual mental state, and seems currently at baseline. Patient reports pain in her right upper arm, and denies any other new or unusual symptoms. She reports that she had been previously feeling well in her usual state of health, although she reports that she had not eaten anything today or drink as much as usual. She denies any other pain, fevers, vomiting, diarrhea, rash, new numbness, focal weakness, vision changes. Did not bite her tongue. Patient received her last chemotherapy infusion approximately 3 weeks ago, and is due for her next infusion in 1 week. She has metastatic breast cancer but does not have known metastases to the brain. No history of syncope or seizures in the past. Related Data Home Medications Medication Instructions Recorded Confirmed doxorubicin, peg-liposomal [Doxil] IV 05/11/19 ondansetron HCl [Zofran] 4 mg PO PRN 05/11/19 levetiracetam [Keppra] 500 mg PO Q12H #60 tab 05/13/19 Previous Rx's Medication Instructions Recorded levetiracetam [Keppra] 500 mg PO Q12H #60 tab 05/13/19 Allergies Allergy/AdvReac Type Severity Reaction Status Date / Time Penicillins Allergy Severe Unverified 04/28/18 12:44 Sulfa (Sulfonamide Allergy Severe Unverified 04/28/18 12:44 Antibiotics) General Stated Complaint: AMS/LOC JARED: 2 Review of Systems Review of Systems Narrative: Constitutional: denies fevers Eyes: denies eye pain ENT: denies facial pain, dental pain, sore throat Cardiovascular: denies chest pain, edema, palpitations, lightheadedness Respiratory: denies SOB, cough GI: denies abdominal pain, vomiting, diarrhea : denies flank pain MSK: denies back pain, neck pain, reports right upper pain Skin: denies rash Neuro: denies headaches, numbness, weakness PFSH Medical History 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 Exam Narrative Exam Narrative: Constitutional: chronically ill but acutely [id number], pleasant, conversing normally HENT: head atraumatic/normocephalic/normal inspection, mucous membranes moist Eyes: conjunctiva normal, sclera normal, pupils 3mm b/l ERRLA, EOMI without nystagmus Neck: no stridor, normal ROM, trachea midline, no c/s TTP, mass right neck Pt reports as chronic 2/2 metastatic breast ca Chest: mass to central chest, Pt reports as chronic 2/2 breast ca Resp: normal work of breathing, LCTAB Cardio: normal rate, normal rhythm, no murmur appreciated GI: abdomen soft, non-tender, non-distended Back: normal inspection, no rash Skin: warm, dry, normal color, no rash Neuro: alert, not altered, grossly non-focal, normal tone Ext: tenderness of the right proximal humerus without deformity or crepitus, no overlying skin changes, no clavicle, scapular, distal humerus, elbow tenderness. Able to range shoulder normally. Radial pulses intact and symmetric. Normal sensation RUE. LUE and b/l LEs atraumatic. B/l non-pitting edema of the LEs that is chronic and unchanged per Pt, no posterior calf TTP. Psych: normal mood, normal affect, normal behavior Course Vital Signs Vital signs: Vital Signs Temperature 36.9 C 05/11/19 17:11 Pulse 93 H 05/11/19 17:11 Respiratory Rate 05/11/19 17:11 Blood Pressure 139/83 05/11/19 17:11 Pulse Oximetry 99 05/11/19 17:11 Temperature 36.9 C 05/11/19 17:11 Temperature Source Temporal Artery Scan 05/11/19 17:11 Pulse 93 H 05/11/19 17:11 Respiratory Rate 05/11/19 17:11 Blood Pressure 139/83 05/11/19 17:11 Blood Pressure Position Sitting 05/11/19 17:11 Pulse Oximetry 99 05/11/19 17:11 Oxygen Delivery Method Room Air 05/11/19 17:11 Oxygen Flow Rate 0 05/11/19 17:11 Pain Level 3 05/11/19 17:11
[2019-05-11 19:02] LABS: Abs Immature Grans 0.01 k/cumm (0.0-0.09); Absolute Basophil Count 0.01 k/cumm (0.0-0.2); Absolute Lymphocyte Count 0.32 k/cumm (1.2-3.4); Absolute Monocyte Count 0.32 k/cumm (0.11-0.7); Basophils % 0.2; HCT 35.1 % (36.0-46.0); HGB 11.8 g/dL (12.0-15.5); Immature Grans % 0.2; Mean Corp. HGB Concentration 33.6 g/dL (32.0-36.0); Mean Corpuscular Hemoglobin 32.3 pg (27.0-33.0); Mean Corpuscular Volume 96.2 fL (80-95); Mean Platelet Volume 9.5 fL (8.0-11.0); Neutrophils % 85.6; Platelet Count 237 x1000/uL (130-400); RBC 3.65 m/cumm (4.00-5.20); RBC Distribution Width 14.8 % (11.7-14.6); White Blood Cell Count 4.56 k/cumm (4.4-10.8)
[2019-05-11 19:28] LABS: ALT 22 U/L (14-59); AST 18 U/L (15-37); Albumin 3.7 g/dL (3.4-5.0); Alkaline Phosphatase 73 U/L (46-116); Anion Gap 10.6 mmol/L (3-11); BUN 9 mg/dL (7-18); Bilirubin, Total 0.3 mg/dL (0.2-1.0); CO2 25.4 mmol/L (21.0-32.0); CREATININE 0.43 mg/dL (0.55-1.02); Calcium 8.7 mg/dL (8.5-10.1); Chloride 101 mmol/L (98-107); Glucose 120 mg/dL (70-100); Potassium 3.3 mmol/L (3.5-5.1); Sodium 137 mmol/L (136-145); Total Protein 7.2 g/dL (6.4-8.2)
[2019-05-11 19:29] LABS: D-Dimer > 7500 ng/mlFEU (<500)
[2019-05-11 19:33] LABS: Troponin I < 0.05 ng/mL (0.00-0.06)
--- NOTE | 2019-05-11 19:44 | DI.RAD_ITS ---
EXAM: XR SHOULDER RT COMPLETE 2+V INDICATION: trauma, pain. COMPARISON: No exams were available for comparison TECHNIQUE: 2D digital imaging was performed. FINDINGS: There is a fracture of the surgical neck of the right humerus. The fracture extends superiorly and l aterally into the greater tuberosity. There is mild impaction of the fracture. No other fracture or dislocation is identified. The glenohumeral joint appears well maintained as is the acromioclavicul ar joint. The soft tissues are unremarkable. IMPRESSION: Impacted fracture involving the surgical neck of the right humerus.
--- NOTE | 2019-05-11 19:44 | DI.CT_ITS ---
EXAM: CT HEAD WO CLINICAL HISTORY: LOC, syncope vs seizure. TECHNIQUE: Multiple contiguous axial images of the head were obtained. COMPARISON: No exams were available for comparison FINDINGS: The ventricles and sulci are consistent with the patient's age no acute intracranial hemorrhage, midl ine shift, or mass effect is identified. The ventricles are intact. The basilar cisterns are patent . The visualized paranasal sinuses are clear. The mastoid air cells are well pneumatized. The calv arium is intact. There is asymmetric enlargement of the left sternocleidomastoid muscle. This area measures 4.6 x 2.8 cm. IMPRESSION: No acute intracranial hemorrhage. No skull fracture. Asymmetric enlargement of the left sternocleidomastoid muscle. A soft tissue mass cannot be excluded . Hematoma should also be considered.
--- NOTE | 2019-05-11 19:44 | DI.RAD_ITS ---
EXAM: XR CHEST 1V IN DI DEPT INDICATION: trauma, pain. TECHNIQUE: 2D digital imaging was performed. FINDINGS: There is again seen elevation of the left hemidiaphragm. The heart size and pulmonary vasculature ar e within normal limits. Increased opacities are present in the left lung base these may represent at electasis scarring or pneumonia. No pleural effusion or pneumothorax is identified. There are clips again seen in the left axilla. The bones appear unremarkable. IMPRESSION: Opacities in the left lung base. This may represent atelectasis, scarring, or pneumonia.
[2019-05-11 19:53] LABS: NT-proBNP 102 pg/mL
[2019-05-11] MEDS: Ondansetron 4 MG/2 ML VIAL IVP (20:06)
--- NOTE | 2019-05-11 23:23 | W.PM.HP.N ---
Date of service: 05/11/19 Time of Service: 23:23 Assessment and Plan Assessment and plan (1) Syncope and collapse: Status: Acute Assessment and plan: This is a 68-year-old lady who had a syncopal episode at home injuring her right shoulder with a humeral fracture and having urinary incontinence at the time of fainting spell at home and with a brief loss of conscious episode while on the CT scan table. She has no focal neurological complaints and did appear to have a postictal state after her syncopal episode at home. This was less obvious when she had brief loss of consciousness in the emergency department. She will be given a loading dose of Keppra and observed overnight with telemetry and trending troponins. She should consider further evaluation for seizures and decide whether she should stay on Keppra until seen by neurology and possibly having an MRI of the head. She is hesitant to do any studies. She also is hesitant to be on any new medications. She is a full code. (2) Humeral head fracture: Status: Acute Assessment and plan: Most likely not a surgical fracture but this can be evaluated by orthopedics. Orthopedic did request CT scan of the shoulder while she was in the emergency department patient refused for now. This will be reevaluated in the morning with orthopedic referral. Patient will be placed in a sling for comfort. Qualifiers: Encounter type: initial encounter Fracture type: closed Laterality: right Qualified Code(s): S42.291A - Other displaced fracture of upper end of right humerus, initial encounter for closed fracture (3) Breast cancer metastasized to bone: Status: Chronic Assessment and plan: Patient's initial diagnosis was in 1998 and she has had stuttering recurrences since that time. She more recently has been battling a metastatic lesion over her right neck. She has refused PET scan in the past and may be time to reevaluate extent of her disease her prognosis and treatment purposes. She wants to do this through [facility] with her oncologist. If there is no emergency this would be appropriate. She may need to stay on Keppra until further evaluation with oncology and neurology. 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 She eventually had a positive lymph node over her left neck which was treated with surgery and x-ray therapy and then recurrence over her sternum with chemotherapy and hormone therapy. More recently she had recurrence in her right neck lymph node with fungating tumor now be treated with chemotherapy, 2 rounds of weekly therapy and now on monthly treatments with her next round of chemotherapy due next week. She presented to the emergency department after a syncopal episode at home where her heard a noise upstairs and went upstairs to find her on the floor, arousable but confused. Patient's states that she was able to get up and walk but was not herself for several minutes. She was incontinent of urine at the time of the fall. He did not notice any seizure activity. She has no memory from the time she was upstairs to memory of being downstairs on the couch. By the time they were in the emergency department the patient was at her baseline mentation. Patient denies any headache or head trauma but was complaining of right shoulder pain with movement. Patient had no complaint of fecal incontinence or GI symptoms, she had no focal neurological complaints and overall she has been feeling more fatigued and sleeping less soundly with increased stress trying to prepare for visitors. As stated she is on chemotherapy and due for her next round in 1 week. She has been hesitant to have scanning having refused PET scan in the past and having some claustrophobia or anxiety whenever she has to have MRIs. He did have an MRI of her knee in the past. He has no known brain metastases or any bony metastases other than her sternum. Review of Systems Review of Systems Narrative: 13 point review of systems otherwise unrevealing or stable patient chronic fatigue weight loss of 100 pounds over the time she has had a cancer. She also has insomnia recently. 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 Meds Home Medications and Allergies Home Medications Medication Instructions Recorded Confirmed Type doxorubicin, peg-liposomal [Doxil] IV 05/11/19 History ondansetron HCl [Zofran] 4 mg PO PRN 05/11/19 History Allergies Allergy/AdvReac Type Severity Reaction Status Date / Time Penicillins Allergy Severe Unverified 04/28/18 12:44 Sulfa (Sulfonamide Allergy Severe Unverified 04/28/18 12:44 Antibiotics) Exam Narrative Exam Narrative: General: Patient appears older than stated age with some wasting but no true cachexia, she has a flattened affect but good eye contact slightly anxious. She is alert and oriented x3. HEENT: Normocephalic with thinning hair, eyes with pupils equal and reactive light symmetrically and extraocular movement intact with sclera anicteric. Oropharynx with moist oral mucosa and fair dentition. Neck: Fungating hard hyperpigmented mass over her right base of the neck with local scarring where she has local fungating metastatic breast cancer tumor. She has similar scarring over her left base of the neck but without a fungating mass.Supple without JVD. Lungs: Decreased aeration but clear to auscultation with bronchovesicular breath sounds diffusely. There is a bandage over her sternum. Heart: Regular rate and rhythm with distant heart sounds. No murmurs gallops appreciated. Breast: Small with left breast having scar from lumpectomy and deformed appearing nipple without palpable gross masses. Abdomen: Soft, nontender with no palpable hepatosplenomegaly, bowel sounds positive in all quadrants. Pelvic/rectal: Exam deferred. Extremities: Without clubbing, cyanosis or pitting edema with nonpitting edema over the lower extremities. Good capillary refill. Neuro: No focalizing motor deficits and no Babinski's, cranial nerves II through XII grossly intact. No tremor. Skin: Pale, warm and dry fungating mass over right neck as mentioned. Psych: Anxious with slightly depressed mood and pressured speech. She questions all medications and all imaging discussed hesitancy to have anything performed without rumination over possible side effects. Results Imaging Imaging Studies: Plain film image of the right shoulder reveals displaced proximal humeral fracture. CT scan of the head revealed no acute intracranial process and chest x-ray revealed chronic changes over the left base. Labs Result diagrams: 05/11/19 18:55 05/11/19 18:55 Labs: Laboratory Results - last 24 hr 05/11/19 05/11/19 05/11/19 18:55 18:55 18:55 WBC 4.56 RBC 3.65 L Hgb 11.8 L Hct 35.1 L MCV 96.2 H MCH 32.3 MCHC 33.6 RDW 14.8 H Plt Count 237 MPV 9.5 Immature Gran % 0.2 Neutrophils % 85.6 Lymphocytes % 7.0 Monocytes % 7.0 Eosinophils % 0.0 Basophils % 0.2 Absolute Neutrophils 3.90 Absolute Lymphocytes 0.32 L Absolute Monocytes 0.32 Absolute Eosinophils 0.00 Absolute Basophils 0.01 D-Dimer > 7500 H Sodium 137 Potassium 3.3 L Chloride 101 Carbon Dioxide 25.4 Anion Gap 10.6 BUN 9 Creatinine 0.43 L Estimated GFR/1.73 m2 >= 60.00 Glucose 120 H Calcium 8.7 Magnesium 2.0 Total Bilirubin 0.3 AST 18 ALT 22 Alkaline Phosphatase 73 Troponin I < 0.05 NT-Pro-B Natriuret Pep 102 Total Protein 7.2 Albumin 3.7 Last Vital Signs Temp 36.9 C 05/11/19 17:11 Pulse 97 H 05/11/19 22:54 Resp 24 05/11/19 22:54 BP 139/59 L 05/11/19 22:54 Pulse Ox 97 05/11/19 22:54
[2019-05-11 23:55] LABS: Bilirubin Negative (Negative); Blood Trace-intact (Negative); Clarity Clear (Clear); Glucose Negative (Negative); Ketones 15 mg/dL (Negative); Leukocyte Esterase Negative (Negative); Nitrite Negative (Negative); Urobilinogen 0.2 EU/dL (Up TO 0.2)
[2019-05-12] VITALS (11 sets, daily range): BP systolic 101–166; BP diastolic 58–87; PULSE 85–98; RESP 18; TEMP 36.5–37.4; O2SAT 95–99
[2019-05-12 00:08] LABS: Troponin I < 0.05 ng/mL (0.00-0.06)
[2019-05-12 00:17] LABS: Bacteria Negative HPF (Negative); C & S Indicated? No; Casts Negative LPF (Negative); Crystals Negative HPF (Negative); Epithelial Cells Rare HPF (Negative); Mucus Negative (Negative); WBC Negative HPF (0-5)
[2019-05-12] MEDS: levETIRAcetam 1,000 MG in Normal Saline 100 ML 400 MG IVPB (01:33)
[2019-05-12] MEDS: Normal Saline Flush 10 ML SYR IVP (01:40)
[2019-05-12] MEDS: POTASSIUM CHLORIDE/0.9% NACL 1,000 ML 100 MEQ IV ×3 (01:59→22:49)
[2019-05-12 07:24] LABS: HCT 31.8 % (36.0-46.0); HGB 10.5 g/dL (12.0-15.5); Mean Corpuscular Hemoglobin 31.9 pg (27.0-33.0); Mean Corpuscular Volume 96.7 fL (80-95); Mean Platelet Volume 9.8 fL (8.0-11.0); Platelet Count 224 x1000/uL (130-400); RBC 3.29 m/cumm (4.00-5.20); RBC Distribution Width 14.8 % (11.7-14.6); White Blood Cell Count 2.77 k/cumm (4.4-10.8)
[2019-05-12 07:38] LABS: ALT 17 U/L (14-59); AST 13 U/L (15-37); Albumin 2.9 g/dL (3.4-5.0); Alkaline Phosphatase 56 U/L (46-116); Anion Gap 9.8 mmol/L (3-11); BUN 7 mg/dL (7-18); Bilirubin, Total 0.4 mg/dL (0.2-1.0); CO2 25.2 mmol/L (21.0-32.0); CREATININE 0.39 mg/dL (0.55-1.02); Calcium 8.1 mg/dL (8.5-10.1); Chloride 109 mmol/L (98-107); Glucose 94 mg/dL (70-100); Potassium 3.4 mmol/L (3.5-5.1); Sodium 144 mmol/L (136-145); Total Protein 5.9 g/dL (6.4-8.2)
[2019-05-12 07:41] LABS: Troponin I < 0.05 ng/mL (0.00-0.06)
--- NOTE | 2019-05-12 08:02 | PHARADMIT ---
Admission Pharmacy Clinical Review SYNCOPE Code Status Full Code Current Weight Wgt-55 kg Renally Cleared and Narrow Therapeutic Index Meds CrCl~53.9 mL/min Meds-OK QTc Value / Action Taken QTc-470 (Zofran) BP Control, Fever BP-108/62 Tmax-36.8C Electrolytes reviewed Na-144 K+3.4 Mag-2.0 DVT Prophylaxis Heparin-SQ Opiate Usage / Scheduled Bowel Regimen Ordered No Yes Plt/SCr for Heparin / Enoxaparin Plts-224 SCr-0.39 INR for Warfarin NA H/H stable, WBC/Bands H&H- 10.5/31.8 WBC-2.77 Antibiotic appropriateness none Cultures and Sensitivities none Surgical ABX d/c within 24 hr NA DM control / Insulin Dosing BG-94 Heart Failure (Check EF%) (CALLY's, B-Block, Diuretics) none IV to PO Switch No Home Meds Reviewed Yes Home Meds Not Ordered None Comments
[2019-05-12 08:33] LABS: TSH (W/Ref FT4) 2.33 uIU/mL (0.36-3.74)
--- NOTE | 2019-05-12 08:33 | PDOC.CMIN ---
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 Hx of malignant neoplasm of breast (Chronic). Recurrent cancer of left breast (Acute). Surgical History . S/P right breast biopsy (Resolved). Status post left breast lumpectomy (Resolved). Status post lymph node biopsy (Resolved) PREVIOUS FUNCTIONAL STATUS/SOCIAL/FAMILY SUPPORTS:: Carla resides with her , Andi in [place], [place]. She is retired from the state of [place]. Carla is indepedent at home she ambulates independently and denies any mobility aids. She is receiving monthly chemotherapy at [facility] and Haven Eckret is her oncologist. CURRENT FUNCTIONAL STATUS:: Carla is alert and engaged with CM her spouse is present at time of assessment. Carla's right arm is in a sling r/t humeral fracture. She has several questions r/t insurance and benefits which CM was able to review with her and her spouse. She also is interested in palliative care which CM has reviewed with her and offered information including a packet. CM to request a palliaitve care consult at time of discharge. ADVANCE DIRECTIVES:: None on file, palliaitve care consult pending Has patient been provided with information about the portal?: Yes Did the patient sign up for the portal?: No CODE STATUS:: Full Code INSURANCE COVERAGE / FINANCIAL ISSUES:: Medicare and BCBS CURRENT HOME/COMMUNITY SERVICES/EQUIPMENT:: Oncology [facility] PRIMARY CARE PHYSICIAN:: POTENTIAL DISCHARGE NEEDS:: Follow up with primary care and palliative care PATIENT/FAMILY EDUCATION NEEDS:: Discharge education, limitaitons and follow up plan of care including ask me three and self management. Palliative care and follow up. ANTICIPATED BARRIERS TO DISCHARGE:: None TRANSPORTATION:: Via private car with spouse at time of discharge PLAN:: Carla is currently being monitored on Tele and status change to acute today. She will be discharged when medically ready she was started on antiepileptic medication and continues to be monitored. CM to provide support on going discharge planning and disposition.
[2019-05-12] MEDS: Potassium Chloride 20 MEQ TABCR 40 MEQ PO (10:05)
[2019-05-12] MEDS: Potassium Chloride 20 MEQ TABCR PO (16:43)
--- NOTE | 2019-05-12 17:57 | PGE_ITS ---
Date of Service Date of service: 05/12/19 Time of Service: 17:57 Assessment and Plan Assessment and plan (1) Syncope and collapse: Status: Acute Assessment and plan: Symptoms of potential post-ictal state and urinary incontinence concerning for seizure activity in patient with known metastatic Breast Ca. - Will obtain MRI and EEG, with neurology follow-up - plan for outpatient as unavailable over the weekend. - Start on oral Keppra following IV Loading doses earlier, and monitor symptomatically. CT Head reviewed and appears negative. (2) Humeral head fracture: Status: Acute Assessment and plan: Per ortho, will continue splint and follow-up as outpatient in 1-2 weeks. Qualifiers: Encounter type: initial encounter Fracture type: closed Laterality: right Qualified Code(s): S42.291A - Other displaced fracture of upper end of right humerus, initial encounter for closed fracture (3) Abnormal chest xray: Status: Acute Assessment and plan: Evidence of atelectasis vs. infiltrate on left base - clinically without pulmonary infection. Per ED note, recent CT of the chest at [facility] shows a left-sided atelectasis. Doubt pneumonia at this time, but will monitor closely. (4) Breast cancer metastasized to bone: Status: Chronic Assessment and plan: Currently following with [facility]. Qualifiers: Laterality: left Qualified Code(s): C50.912 - Malignant neoplasm of unspecified site of left female breast; C79.51 - Secondary malignant neoplasm of bone (5) DVT prophylaxis: Status: Acute Assessment and plan: Heparin SC ordered but refused by patient. (6) Advance directive on file: Status: Acute Assessment and plan: Full code. Subjective Subjective Interval history since last seen: 68-year-old woman with a prior history of recurrent Breast Ca, admitted from [facility] Emergency Department on 05/11 with a diagnosis of Seizure vs. Syncope. Mrs. Rivera has a Past Medical History significant for left Breast Ca, initially diagnosed in 1998 s/p Lumpectomy, chemo, and XRT. She reportedly had subsequent positive supraclaviccular lymph node in 2009 positive for metastatic disease, treated with surgery and radiation therapy, and then with recurrence with chest wall/sternal mass and right supraclavicular mass, again path positive for metastatic disease, for which she was initiated on chemo and hormonal therapy. The patient presented to the ED following what was initially assumed to be a syncopal episode. Her was downstairs in their home, and heard a noise upstairs - he found the patient on the floor, arousable but confused, with evidence of urinary incontinence. She remained confused for several minutes after the initial incident, but returned to her normal mentation by the time of arrival to the ED. The patient also had no memories of the event. Work-up in the ED was negative for any focal neurologic deficits, lack of leukocytosis or fever , no UTI by urinalysis, and essentially normal renal function with mild hypokalemia. CXR showed evidence of opacities in the left base on the consistent with either atelectasis or pneumonia, CT of the head with an addended read as negative for acute IC hemorrhage or changes, and shoulder Xray with an acute displaced fracture of the humeral head. This morning Mrs. Rivera remains asymptomatic without any further episodes. She was given IV Keppra, and her shoulder was splinted. Her WBC is low, but she remains afebrile and with normal oxygenation and regular HR. No overnight events reported. Remains afebrile. Objective Objective Clinical Data: Abnormal lab results 05/11/19 05/11/19 05/11/19 Range/Units 18:55 18:55 18:55 WBC (4.4-10.8) k/cumm RBC 3.65 L (4.00-5.20) m/cumm Hgb 11.8 L (12.0-15.5) g/dL Hct 35.1 L (36.0-46.0) % MCV 96.2 H (80-95) fL RDW 14.8 H (11.7-14.6) % Absolute Lymphocytes 0.32 L (1.2-3.4) k/cumm D-Dimer > 7500 H (<500) ng/mlFEU Potassium 3.3 L (3.5-5.1) mmol/L Chloride (98-107) mmol/L Creatinine 0.43 L (0.55-1.02) mg/dL Glucose 120 H (70-100) mg/dL Calcium (8.5-10.1) mg/dL AST (15-37) U/L Total Protein (6.4-8.2) g/dL Albumin (3.4-5.0) g/dL Urine Ketones (Negative) mg/dL Urine Blood (Negative) Urine RBC (0-2) 05/11/19 05/12/19 05/12/19 Range/Units 23:25 06:50 06:50 WBC 2.77 L D (4.4-10.8) k/cumm RBC 3.29 L (4.00-5.20) m/cumm Hgb 10.5 L (12.0-15.5) g/dL Hct 31.8 L (36.0-46.0) % MCV 96.7 H (80-95) fL RDW 14.8 H (11.7-14.6) % Absolute Lymphocytes (1.2-3.4) k/cumm D-Dimer (<500) ng/mlFEU Potassium 3.4 L (3.5-5.1) mmol/L Chloride 109 H (98-107) mmol/L Creatinine 0.39 L (0.55-1.02) mg/dL Glucose (70-100) mg/dL Calcium 8.1 L (8.5-10.1) mg/dL AST 13 L (15-37) U/L Total Protein 5.9 L (6.4-8.2) g/dL Albumin 2.9 L (3.4-5.0) g/dL Urine Ketones 15 H (Negative) mg/dL Urine Blood Trace-intact H (Negative) Urine RBC 3-5 H (0-2) Vital Signs Temperature 37.3 C 05/12/19 15:30 Temperature Source Tympanic 05/12/19 15:30 Pulse 86 05/12/19 15:30 Pulse Rhythm Regular 05/12/19 08:30 Pulse 100 H 05/11/19 22:40 Respiratory Rate 18 05/12/19 15:30 Respiratory Effort Non-Labored 05/12/19 08:30 Respiratory Depth Normal 05/12/19 08:30 Respiratory Pattern Normal 05/12/19 08:30 Blood Pressure 133/76 05/12/19 15:30 Blood Pressure Mean 80 05/11/19 22:30 Blood Pressure Position Sitting 05/11/19 17:11 Pulse Oximetry 95 05/12/19 15:30 Oxygen Delivery Method Room Air 05/12/19 15:30 Oxygen Flow Rate 0 05/12/19 15:30 Pain Level 0 05/12/19 15:30 Comment 05/12/19 15:30 Intake & Output 05/11/19 05/12/19 05/12/19 23:59 11:59 23:59 Intake Total 1470 / 1835 365 / 1835 Output Total 500 / 500 1500 / 1500 Balance -500 / -500 - 335 365 / 335 Weight 55 kg Intake: IV 1110 / 1225 115 / 1225 Oral 360 / 610 250 / 610 Output: Urine 500 / 500 1500 / 1500 Other: Urine Color Pale Pale Urine Appearance Clear Clear Urine Odor None None Comment x2 voids Voiding Methods Bedside Commode Bedside Commode Laboratory Results WBC 2.77 k/cumm (4.4-10.8) L D 05/12/19 06:50 RBC 3.29 m/cumm (4.00-5.20) L 05/12/19 06:50 Hgb 10.5 g/dL (12.0-15.5) L 05/12/19 06:50 Hct 31.8 % (36.0-46.0) L 05/12/19 06:50 MCV 96.7 fL (80-95) H 05/12/19 06:50 MCH 31.9 pg (27.0-33.0) 05/12/19 06:50 MCHC 33.0 g/dL (32.0-36.0) 05/12/19 06:50 RDW 14.8 % (11.7-14.6) H 05/12/19 06:50 Plt Count 224 x1000/uL (130-400) 05/12/19 06:50 MPV 9.8 fL (8.0-11.0) 05/12/19 06:50 Immature Gran % 0.2 05/11/19 18:55 Neutrophils % 85.6 05/11/19 18:55 Lymphocytes % 7.0 05/11/19 18:55 Monocytes % 7.0 05/11/19 18:55 Eosinophils % 0.0 05/11/19 18:55 Basophils % 0.2 05/11/19 18:55 Absolute Neutrophils 3.90 k/cumm (1.2-6.7) 05/11/19 18:55 Absolute Lymphocytes 0.32 k/cumm (1.2-3.4) L 05/11/19 18:55 Absolute Monocytes 0.32 k/cumm (0.11-0.7) 05/11/19 18:55 Absolute Eosinophils 0.00 k/cumm (0.0-0.7) 05/11/19 18:55 Absolute Basophils 0.01 k/cumm (0.0-0.2) 05/11/19 18:55 D-Dimer > 7500 ng/mlFEU (<500) H 05/11/19 18:55 Sodium 144 mmol/L (136-145) 05/12/19 06:50 Potassium 3.4 mmol/L (3.5-5.1) L 05/12/19 06:50 Chloride 109 mmol/L (98-107) H 05/12/19 06:50 Carbon Dioxide 25.2 mmol/L (21.0-32.0) 05/12/19 06:50 Anion Gap 9.8 mmol/L (3-11) 05/12/19 06:50 BUN 7 mg/dL (7-18) 05/12/19 06:50 Creatinine 0.39 mg/dL (0.55-1.02) L 05/12/19 06:50 Estimated GFR/1.73 m2 >= 60.00 (mL/min/1.73m2) 05/12/19 06:50 Glucose 94 mg/dL (70-100) 05/12/19 06:50 Calcium 8.1 mg/dL (8.5-10.1) L 05/12/19 06:50 Magnesium 2.0 mg/dL (1.8-2.4) 05/11/19 18:55 Total Bilirubin 0.4 mg/dL (0.2-1.0) 05/12/19 06:50 AST 13 U/L (15-37) L 05/12/19 06:50 ALT 17 U/L (14-59) 05/12/19 06:50 Alkaline Phosphatase 56 U/L (46-116) 05/12/19 06:50 Troponin I < 0.05 ng/mL (0.00-0.06) 05/12/19 06:50 NT-Pro-B Natriuret Pep 102 pg/mL (-299) 05/11/19 18:55 Total Protein 5.9 g/dL (6.4-8.2) L 05/12/19 06:50 Albumin 2.9 g/dL (3.4-5.0) L 05/12/19 06:50 TSH 2.33 uIU/mL (0.36-3.74) 05/12/19 06:50 Urine Color Yellow (Yellow) 05/11/19 23:25 Urine Clarity Clear (Clear) 05/11/19 23:25 Urine pH 7.0 (5-8) 05/11/19 23:25 Ur Specific [place] 1.010 (1.005-1.025) 05/11/19 23:25 Urine Protein Negative mg/dL (Negative) 05/11/19 23:25 Urine Ketones 15 mg/dL (Negative) H 05/11/19 23:25 Urine Blood Trace-intact (Negative) H 05/11/19 23:25 Urine Nitrite Negative (Negative) 05/11/19 23:25 Urine Bilirubin Negative (Negative) 05/11/19 23:25 Urine Urobilinogen 0.2 EU/dL (Up TO 0.2) 05/11/19 23:25 Ur Leukocyte Esterase Negative (Negative) 05/11/19 23:25 Urine RBC 3-5 (0-2) H 05/11/19 23:25 Urine WBC Negative HPF (0-5) 05/11/19 23:25 Ur Epithelial Cells Rare HPF (Negative) 05/11/19 23:25 Urine Crystals Negative HPF (Negative) 05/11/19 23:25 Urine Bacteria Negative HPF (Negative) 05/11/19 23:25 Urine Casts Negative LPF (Negative) 05/11/19 23:25 Urine Mucus Negative (Negative) 05/11/19 23:25 Ur Culture Indicated? No 05/11/19 23:25 Urine Glucose Negative mg/dL (Negative) 05/11/19 23:25
[2019-05-12] MEDS: levETIRAcetam 500 MG TAB PO (21:52)
[2019-05-13] MEDS: Acetaminophen 500 MG TAB 1000 MG PO (02:32)
[2019-05-13] MEDS: LORazepam 0.5 MG TAB PO (02:33)
[2019-05-13 04:29] VITALS: BP 122/63; PULSE 83; RESP 17; TEMP 37.1; O2SAT 93
[2019-05-13 07:06] VITALS: PULSE 73
[2019-05-13] MEDS: POTASSIUM CHLORIDE/0.9% NACL 1,000 ML 100 MEQ IV (07:13)
[2019-05-13 07:30] LABS: Abs Immature Grans 0.01 k/cumm (0.0-0.09); Absolute Basophil Count 0.02 k/cumm (0.0-0.2); Absolute Eosinophil Count 0.02 k/cumm (0.0-0.7); Absolute Neutrophil Count 1.21 k/cumm (1.2-6.7); Basophils % 0.8; Eosinophils % 0.8; HCT 30.9 % (36.0-46.0); Immature Grans % 0.4; Lymphocytes % 25.4; Mean Corp. HGB Concentration 32.4 g/dL (32.0-36.0); Mean Corpuscular Hemoglobin 31.7 pg (27.0-33.0); Mean Corpuscular Volume 98.1 fL (80-95); Mean Platelet Volume 9.8 fL (8.0-11.0); Monocytes % 21.2; Neutrophils % 51.4; Platelet Count 208 x1000/uL (130-400); RBC 3.15 m/cumm (4.00-5.20); RBC Distribution Width 14.8 % (11.7-14.6); White Blood Cell Count 2.36 k/cumm (4.4-10.8)
[2019-05-13 07:33] LABS: Anion Gap 8.6 mmol/L (3-11); BUN 4 mg/dL (7-18); CO2 24.4 mmol/L (21.0-32.0); Calcium 8.1 mg/dL (8.5-10.1); Chloride 111 mmol/L (98-107); Glucose 88 mg/dL (70-100); Magnesium 1.9 mg/dL (1.8-2.4); Potassium 3.9 mmol/L (3.5-5.1); Sodium 144 mmol/L (136-145)
[2019-05-13 08:21] LABS: Diff Comment Diff Reviewed; RBC Morphology Normal
[2019-05-13 08:22] VITALS: BP 105/62; PULSE 70; RESP 16; TEMP 36.2; O2SAT 97
--- NOTE | 2019-05-13 09:08 | PDOC.CMDIS ---
- If Service Date Differs Date of service: 05/13/19 Time of Service: 09:08 LACE Index Scoring Tool - Questions: Length of Stay (in days): 3 Acuity (Admit via E.D.?): Yes Comorbidities: Any Tumor E.D. Visits: 1 - Answers: Total Score: 9 Risk of Readmission: Low Risk Care Management Discharge Reason for Hospitalization: Syncope Discharge Plan: Cecelia will be discharged home with referral to palliative care and ongoing follow up with her oncologist. She will continue on Keppra as an outpatient. CM faxed palliative care consult to service. Cecelia feels ready to be discharged and has a plan to manage pain and follow up with her provider. CM encouraged her to contact her oncologist to review recent stay and new onset of seizure like activity. Patient/Family Education Needs: Discharge edcuation, limitations and follow up plan of care including ask me three and self management. Resources for palliative care and referral.
[2019-05-13] MEDS: Potassium Chloride 10 MEQ TABCR PO (09:36)
[2019-05-13] MEDS: levETIRAcetam 500 MG TAB PO (09:36)
[2019-05-13] MEDS: Magnesium Oxide 400 MG TAB PO (09:36)
[2019-05-13 11:00] VITALS: BP 121/70; PULSE 86; RESP 17; TEMP 37; O2SAT 94
--- NOTE | 2019-05-13 12:12 | W.PM.DS.N ---
Date of service: 05/13/19 Time of Service: 12:13 DS: Diagnosis Discharge Diagnosis (1) Syncope and collapse: Status: Acute (2) Humeral head fracture: Status: Acute (3) Abnormal chest xray: Status: Acute (4) Breast cancer metastasized to bone: Status: Chronic Discharge Plan Disposition Patient Disposition: HOME Condition: Stable Discharge Details Chief Complaint: AMS/LOC Reason For Visit: SYNCOPE Admit Date/Time: 05/12/19 16:16 Admit Provider: Nato Mackay Attending Provider: Nato Mackay Primary Care Provider: Brandy White ED Provider: Neida De Guzman Hospital Course Hospital Course: Chief Complaint: Syncope vs. Seizure HPI: 68-year-old woman with a prior history of recurrent Breast Ca, admitted from [facility] Emergency Department on 05/11 with a diagnosis of Seizure vs. Syncope. Mrs. Rivera has a Past Medical History significant for left sided Breast Ca, initially diagnosed in 1998 s/p Lumpectomy, chemo, and XRT. She reportedly had subsequent supraclaviccular lymph node in 2009 positive for metastatic disease, treated with surgery and radiation therapy, and then with recurrence with chest wall/sternal mass and right supraclavicular mass, again path positive for metastatic disease, for which she was initiated on chemo and hormonal therapy. The patient presented to the ED following what was initially assumed to be a syncopal episode. Her was downstairs in their home, and heard a noise upstairs - he found the patient on the floor, arousable but confused, with evidence of urinary incontinence. She remained confused for several minutes after the initial incident, but returned to her normal mentation by the time of arrival to the ED. The patient also had no memories of the event. Work-up in the ED was negative for any focal neurologic deficits, lack of leukocytosis or fever, no UTI by urinalysis, and essentially normal renal function with mild hypokalemia. CXR showed evidence of opacities in the left base consistent with either atelectasis or pneumonia, CT of the head was negative for any acute findings, and shoulder Xray showed an acute displaced fracture of the humeral head. This morning Mrs. Rivera remains asymptomatic without and again without any further episodes. She was given IV Keppra, transitioned to oral, and her shoulder was splinted. Her WBC is low, but she remains afebrile and with normal oxygenation and regular HR. No overnight events reported. Remains afebrile. Hospital Course: (1) Syncope and collapse: Symptoms of potential post-ictal state and urinary incontinence concerning for seizure activity in patient with known metastatic Breast Ca. - Will obtain MRI and EEG, with neurology follow-up - plan for outpatient as unavailable over the weekend. - Continue on oral Keppra following IV Loading doses earlier, and monitor symptomatically. CT Head reviewed and appears negative. - Telemetry reviewed and with NSR, with HR in the 70's. (2) Humeral head fracture: Per ortho, will continue splint and follow-up as outpatient in 1-2 weeks. Patient does not wish for opiate or other prescription at time of discharge. (3) Abnormal chest xray: Evidence of atelectasis vs. infiltrate on left base - clinically without pulmonary infection. Per ED note, recent CT of the chest at [facility] shows a left-sided atelectasis - reviewed study results, and CT on 03/20/2019 with L>R pleural effusions. Doubt pneumonia at this time clinically as patient remains afebrile and without dyspnea or cough, but patient's symptoms should be monitored over time for any changes. (4) Breast cancer metastasized to bone: Currently following with [facility]. (5) DVT prophylaxis: Heparin SC ordered but refused by patient. (6) Advance directive on file: Full code. Home Meds and New Rx's Prescriptions: New levetiracetam [Keppra] 500 mg Tablet 500 mg PO Q12H Qty: 60 RF: 0 Continued doxorubicin, peg-liposomal [Doxil] 2 mg/mL Suspension IV RF: 0 ondansetron HCl [Zofran] 4 mg Tablet 4 mg PO PRNRF: 0 Discharge Instructions Instructions: Syncope (DC) Stand Alone Forms: Nursing Discharge Form Referrals: Brandy White [Primary Care Provider] - (Please call the office on Tuesday morning to schedule a follow up appointment) Maynor Nuñez MD [ [facility] STAFF PHYSICIAN] - (The office will call you tomorrow with an appointment) Brenda Ely MD [ [facility] STAFF PHYSICIAN] - (Please call the office to make an appointment) Activity:: No Strenuous activity, climbing ladders, operating machinery, or driving. Equipment/Supplies:: No Equipment Needed Diet:: As Tolerated Discharge Orders Discharge Orders: Discharge Order (Routine); Ordered 05/13/19 Ordered By: Jevon Urena Other Ambulatory Orders: MR brain wo (Routine) Timeframe: 1 Week Location: None Selected Ordered By: Jevon Urena DS: Summary Status at Discharge Functional status at discharge: independent ambulation Overall status at discharge: patient is back to baseline Mental Status: mental status grossly normal Speech and Movement: speech and movement normal Mood: congruent mood Affect: normal affect Exam Psych Mental Status: mental status grossly normal Speech and Movement: speech and movement normal Mood: congruent mood Affect: normal affect DS: Data Vitals/I&O Vitals and I&O: Vital Signs Temperature 36.2 C L 05/13/19 08:22 Temperature Source Temporal Artery Scan 05/13/19 08:22 Pulse 70 05/13/19 08:22 Pulse Rhythm Regular 05/12/19 23:43 Pulse 100 H 05/11/19 22:40 Respiratory Rate 16 05/13/19 08:22 Respiratory Effort Non-Labored 05/13/19 02:59 Respiratory Depth Normal 05/13/19 02:59 Respiratory Pattern Normal 05/13/19 02:59 Blood Pressure 105/62 05/13/19 08:22 Blood Pressure Mean 80 05/11/19 22:30 Blood Pressure Position Sitting 05/11/19 17:11 Pulse Oximetry 97 05/13/19 08:22 Oxygen Delivery Method Room Air 05/13/19 08:22 Oxygen Flow Rate 0 05/13/19 08:22 Pain Level 0 05/13/19 08:22 Comment 05/12/19 23:03 Intake & Output 05/12/19 05/13/19 05/13/19 23:59 11:59 23:59 Intake Total 2411.667 / 3881.667 1200 / 1200 Output Total 1200 / 2700 1500 / 1500 Balance 1211.667 / 1181.667 -300 / -300 Intake: IV 1681.667 / 2791.667 840 / 840 Oral 730 / 1090 360 / 360 Output: Urine 1200 / 2700 1500 / 1500 Other: Urine Color Yellow Yellow Urine Appearance Clear Urine Odor Normal Comment Void x 1 in bathroom, not measured Voiding Methods Toilet Toilet Data Completed and Pending Completed studies during hospitalization [Text1]: Exam(s) 05/11 a RAD:XR chest 1V in DI dept EXAM: XR CHEST 1V IN DI DEPT INDICATION: trauma, pain. FINDINGS: There is again seen elevation of the left hemidiaphragm. The heart size and pulmonary vasculature are within normal limits. Increased opacities are present in the left lung base these may represent atelectasis scarring or pneumonia. No pleural effusion or pneumothorax is identified. There are clips again seen in the left axilla. The bones appear unremarkable. IMPRESSION: Opacities in the left lung base. This may represent atelectasis, scarring, or pneumonia. -------- Exam(s) 05/11 EXAM: CT HEAD WO CLINICAL HISTORY: LOC, syncope vs seizure. TECHNIQUE: Multiple contiguous axial images of the head were obtained. COMPARISON: No exams were available for comparison FINDINGS: The ventricles and sulci are consistent with the patient's age no acute intracranial hemorrhage, midline shift, or mass effect is identified. The ventricles are intact. The basilar cisterns are patent. The visualized paranasal sinuses are clear. The mastoid air cells are well pneumatized. The calvarium is intact. There is asymmetric enlargement of the left sternocleidomastoid muscle. This area measures 4.6 x 2.8 cm. IMPRESSION: No acute intracranial hemorrhage. No skull fracture. Asymmetric enlargement of the left sternocleidomastoid muscle. A soft tissue mass cannot be excluded. Hematoma should also be considered. --------- Exam(s) a RAD:XR shoulder RT complete 2+V EXAM: XR SHOULDER RT COMPLETE 2+V INDICATION: trauma, pain. COMPARISON: No exams were available for comparison TECHNIQUE: 2D digital imaging was performed. FINDINGS: There is a fracture of the surgical neck of the right humerus. The fracture extends superiorly and laterally into the greater tuberosity. There is mild impaction of the fracture. No other fracture or dislocation is identified. The glenohumeral joint appears well maintained as is the acromioclavicular joint. The soft tissues are unremarkable. IMPRESSION: Impacted fracture involving the surgical neck of the right humerus. Labs on day of discharge: Labs from last 24 hours 05/13/19 05/13/19 06:45 06:45 WBC 2.36 L RBC 3.15 L Hgb 10.0 L Hct 30.9 L MCV 98.1 H MCH 31.7 MCHC 32.4 RDW 14.8 H Plt Count 208 MPV 9.8 Immature Gran % 0.4 Neutrophils % 51.4 Lymphocytes % 25.4 Monocytes % 21.2 Eosinophils % 0.8 Basophils % 0.8 Absolute Neutrophils 1.21 Absolute Lymphocytes 0.60 L Absolute Monocytes 0.50 Absolute Eosinophils 0.02 Absolute Basophils 0.02 Differential Comment Diff reviewed RBC Morphology Normal Sodium 144 Potassium 3.9 Chloride 111 H Carbon Dioxide 24.4 Anion Gap 8.6 BUN 4 L Creatinine 0.40 L Estimated GFR/1.73 m2 >= 60.00 Glucose 88 Calcium 8.1 L Magnesium 1.9 PFSH Medical History 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
[2019-05-13 12:20] VITALS: PULSE 95
--- NOTE | 2019-05-13 12:55 | NUR.NOTE ---
Nursing Note: 05/13/[address] Gtz regarding discharge instructions for the patient. He stated his office will call her tomorrow with an appointment for sometime in the next one to two weeks. During the meantime, he sated that she should keep her sling on for comfort, with the ability to rest the arm out of the sling on a pillow or in her lap at least once a day to give her nack a rest if needed. Patient may wiggle her fingers and bend her wrist as well as straighten her elbow occasionally.
== END 2019-05-13 13:58 | disposition home or self-care (01) | DRG 312 ==
LOC: ER 22:34 → MS 23:07
PROVIDERS: Admitting Provider Family Medicine; Emergency Provider Student in an Organized Health Care Education/Training Program; PCP Family Medicine; Visit Provider Internal Medicine
DX: R55 Syncope and collapse (principal); S42.211A Unspecified displaced fracture of surgical neck of right humerus, initial encounter for closed fracture; C79.51 Secondary malignant neoplasm of bone; C77.0 Secondary and unspecified malignant neoplasm of lymph nodes of head, face and neck; W19.XXXA Unspecified fall, initial encounter; C50.912 Malignant neoplasm of unspecified site of left female breast; R91.8 Other nonspecific abnormal finding of lung field; Z79.899 Other long term (current) drug therapy
CPT/HCPCS: 36415; 80048; 80053; 85027; 93005; 99220; 99232; 99238; 99285; 70450; 71045; 73030; 81003; 81015; 83735; 83880; 84443; 84484; 85025; 85379; 93010; G0378; J1953; J2405; L3650

== ENCOUNTER → 2019-06-13 14:17 | Outpatient (BNVA) | payer MEDICARE, BC, SELFPAY | PROVIDERS: PCP Family Medicine; Referring Provider Family Medicine; Visit Provider Psychiatry & Neurology Neurology | DX: R40.4 Transient alteration of awareness (principal) | CPT/HCPCS: 99205; 99215 ==

== ENCOUNTER 2020-01-02 00:40 | Outpatient (CLI) | payer MEDICARE, BC, SELFPAY ==
--- NOTE | 2020-01-02 12:48 | DI.RAD_ITS ---
EXAM: XR CHEST 2V PA LATERAL CLINICAL HISTORY: COUGH, HOARSENESS, H/O CA TECHNIQUE: 2D digital imaging was performed. COMPARISON: CR,XR XR CHEST 1V IN DI DEPT from 05/11/2019 FINDINGS: MEDIASTINUM: Normal. HEART: Normal. PULMONARY VASCULATURE: Normal. LUNGS: Clear. PLEURAL SPACE: Small to moderate size bilateral pleural effusions are present. BONE:Normal. OTHER FINDINGS:Surgical clips are again seen in the left axilla. IMPRESSION: Small to moderate size bilateral pleural effusions. DATA REPOSITORY: RADIATION DOSE DELIVERED:
== END 2020-01-02 01:00 ==
PROVIDERS: PCP Family Medicine; Visit Provider Internal Medicine Medical Oncology
DX: R05 Cough (principal); R49.0 Dysphonia; J90 Pleural effusion, not elsewhere classified
CPT/HCPCS: 71046